=== PATIENT | female | born 2005 | race Caucasian/White ===

== ENCOUNTER 2024-06-02 11:57 | Emergency (ER) | payer OTHER, SELFPAY ==
[2024-06-02 12:08] VITALS: BP 113/79; PULSE 68; RESP 16; TEMP 37; O2SAT 100
--- NOTE | 2024-06-02 13:41 | ED.RECABL ---
HPI - Recheck/Abnormal Lab/Rx General Chief Complaint: Recheck/Abnormal Lab/Rx Stated Complaint: 13 weeks preg, htn Time Seen by Provider: 06/02/24 12:53 History of Present Illness HPI narrative: 18-year-old female at approximately 13 weeks gestation presenting with lightheadedness. States that she was at work when she started to feel lightheaded so she checked her pulse and it was in the 130s. She went to the nurse who tested her blood pressure which was elevated. Also complains of a headache. Her family is at bedside and states that she has been dealing with a lot of anxiety and stress lately. States that she is prone to UTIs and she was just treated for 1. She denies dysuria. Related Data Allergies Allergy/AdvReac Type Severity Reaction Status Date / Time codeine Allergy Unknown RASH Verified 06/02/24 12:23 Review of Systems Review of Systems: All systems reviewed & are unremarkable except as noted in HPI and below Exam Narrative: GENERAL: Well-appearing, Is in no acute distress, pleasant cooperative HEAD: Normocephalic, atraumatic. EYES: PERRLA and EOMI. ENT: Mucous membranes moist. NECK: Supple. CHEST: Clear to auscultation. No respiratory distress. HEART: Regular rate and rhythm ABDOMEN: Soft, nontender, appropriately gravid EXTREMITIES: Normal range of motion SKIN: Warm, dry, no rash. NEURO: Alert and oriented x3. PSYCH: Normal mood and affect. Course Vital Signs Vital signs: Vital Signs Temperature 98.6 F 06/02/24 12:08 Pulse Rate 68 06/02/24 12:08 Respiratory Rate 16 06/02/24 12:08 Blood Pressure 113/79 06/02/24 12:08 Pulse Oximetry 100 06/02/24 12:08 Oxygen Delivery Room Air 06/02/24 12:08 Temperature 98.5 F 06/02/24 15:41 Pulse Rate 62 06/02/24 15:41 Respiratory Rate 16 06/02/24 15:41 Blood Pressure 96/59 L 06/02/24 15:41 Pulse Oximetry 100 06/02/24 15:41 Oxygen Delivery Room Air 06/02/24 12:08 MDM - Recheck/Abnormal Lab/Rx MDM Narrative Medical decision making narrative: 18-year-old female presenting with lightheadedness. Vitals within normal limits. Exam remarkable for the above. Blood work is unremarkable. UA is contaminated but does appear like it may still be infected. Will start her back on Keflex. Patient has already spoken with her OB who is going to follow up with her on Wednesday. Discussed appropriate supportive care and return precautions. Discharged in stable condition. Differential Diagnosis Differential diagnosis: Likely other ( Lightheadedness, , UTI, dehydration) Medical Records Attestation: I reviewed the patient's medical records. Lab Data Attestation: I reviewed the patient's lab results. 06/02/24 14:10 06/02/24 14:10 Labs: Lab Results 06/02/24 06/02/24 06/02/24 Range/Units 14:10 14:11 14:32 WBC 8.5 (4.5-10.0) K/mm3 RBC 3.49 L (4.2-5.4) M/mm3 Hgb 11.6 L (12.0-15.0) g/dL Hct 32.4 L (37.0-47.0) % MCV 92.8 (80-100) fl MCH 33.2 (26-34) pg MCHC 35.8 (32-36) g/dl RDW 12.3 (11.5-14.5) % Plt Count 290 (150-375) k/mm3 MPV 9.6 (7.4-10.4) fl Immature Gran % (Auto) 0.5 (0-0.5) % Neut % (Auto) 71.5 (45.5-73.1) % Lymph % (Auto) 19.2 (18.3-44.2) % [place] % (Auto) 7.1 (2.6-8.5) % Eos % (Auto) 1.2 (0-4.4) % Baso % (Auto) 0.5 (0.2-1.2) % Lymph # (Auto) 1.64 (0.9-3.2) K/mm3 [place] # (Auto) 0.6 (0.1-0.6) K/mm3 Eos # (Auto) 0.1 (0-0.3) K/mm3 Baso # (Auto) 0.0 (0.0-0.1) K/mm3 Abs Immat Gran (auto) 0.04 H (0.00-0.031) K/mm3 Absolute Neuts (auto) 6.1 (1.3-6.7) K/mm3 Absolute Nucleated RBC 0.000 (0.0-0.012) K/mm3 Nucleated RBC % 0.0 (0.0-0.2) % Sodium 134 (134-143) mmol/L Potassium 3.9 (3.4-5.0) mmol/L Chloride 107 (98-107) mmol/L Carbon Dioxide 25 (22-30) mmol/L Anion Gap 2 L (4-12) mmol/L BUN 6 L (8-21) mg/dL Creatinine 0.40 L (0.7-1.0) mg/dL Estim Creat Clear Calc 175 ml/min Estimated GFR > 60 (59 - ) Glucose 73 (65-110) mg/dL Calcium 8.8 L (8.9-10.7) mg/dL Urine Color Yellow (Yellow) Urine Appearance Cloudy H (Clear) Urine pH 6.5 (5.0-9.0) Ur Specific Bernard 1.016 (1.001-1.035) Urine Protein Trace (Negative) mg/dL Urine Glucose (UA) Negative (Negative) mg/dL Urine Ketones Negative (Negative) mg/dL Ur Blood (Man) Negative (Negative) Urine Nitrate Negative (Negative) Urine Bilirubin Negative (Negative) Urine Urobilinogen 1.0 (<2.0) mg/dL Leukocyte Esterase Rfl 1+ H (Negative) [place]/UL Urine RBC 0-2 (0-2) /hpf Urine WBC 21-50 H (0-3) /hpf Ur Squamous Epith Cells Few (Few) /hpf Urine Bacteria 4+ /hpf Urine Casts 0-2 POC Urine HCG, Qual Positive (Negative) Critical Care Time Critical Care Time Critical Care Time: No Discharge Plan Discharge Clinical Impression: Urinary tract infection affecting , Light-headedness Patient Disposition: Home, Self-Care Condition: Stable Instructions: Antibiotic Form, Urinary Tract Infection in (ED) Additional Instructions: Your workup today shows urinary tract infection. Please complete the antibiotics as prescribed. Drink plenty of hydrating fluids such as water, Gatorade, Powerade. Follow-up closely with your OB as discussed. If your symptoms worsen or other concerning symptoms arise, please return to the ER. Prescriptions: New cephalexin 500 mg capsule 500 mg PO Q12H 7 Days Qty: 14 0RF Follow-up/Referrals: Luis Alfredo Green MD [Primary Care Provider] -
[2024-06-02 14:14] VITALS: BP 100/54; PULSE 77; RESP 16; TEMP 36.8; O2SAT 100
[2024-06-02 14:18] LABS: Basophils Percent Auto 0.5 % (0.2-1.2); Eosinophils Absolute Auto 0.1 K/mm3 (0-0.3); Eosinophils Percent Auto 1.2 % (0-4.4); Hematocrit 32.4 % (37.0-47.0); Hemoglobin 11.6 g/dL (12.0-15.0); Immature Granulocyte Absolute 0.04 K/mm3 (0.00-0.031); Immature Granulocyte Percent A 0.5 % (0-0.5); Lymphocytes Absolute Auto 1.64 K/mm3 (0.9-3.2); Lymphocytes Percent Auto 19.2 % (18.3-44.2); Mean Corpuscular HGB Conc 35.8 g/dl (32-36); Mean Corpuscular Hemoglobin 33.2 pg (26-34); Mean Corpuscular Volume 92.8 fl (80-100); Mean Platelet Volume 9.6 fl (7.4-10.4); Monocytes Absolute Auto 0.6 K/mm3 (0.1-0.6); Monocytes Percent Auto 7.1 % (2.6-8.5); Neutrophils Absolute Auto 6.1 K/mm3 (1.3-6.7); Neutrophils Percent Auto 71.5 % (45.5-73.1); Platelet Count Result 290 k/mm3 (150-375); Red Blood Count 3.49 M/mm3 (4.2-5.4); Red Cell Distribution Width 12.3 % (11.5-14.5); White Blood Count 8.5 K/mm3 (4.5-10.0)
[2024-06-02 14:22] LABS: Add Urine Microscopic? YES; Appearance Urine Cloudy (Clear); Bacteria Urine 4+ /hpf; Bilirubin Urine Negative (Negative); Blood Urine Negative (Negative); Color Urine Yellow (Yellow); Glucose Urine UA Negative (Negative); Ketones Urine Negative (Negative); Leukocyte Esterase Ur 1+ LEU/UL (Negative); Nitrate Urine Negative (Negative); Non Pathogenic Casts 0-2; Protein Urine Trace mg/dL (Negative); RBC Urine 0-2 /hpf (0-2); Specific Grav Ur 1.016 (1.001-1.035); Squamous Epithelial Cell Urine Few /hpf (Few); WBC Urine 21-50 /hpf (0-3); pH Urine 6.5 (5.0-9.0)
[2024-06-02] MEDS: SODIUM CHLORIDE 0.9% IV 1,000 ML 999 ML IV CONT (14:22)
[2024-06-02] MEDS: ACETAMINOPHEN 500 MG TABLET 1000 MG PO (14:23)
[2024-06-02 14:26] VITALS: O2SAT 100
[2024-06-02 14:32] LABS: Anion Gap 2 mmol/L (4-12); Blood Urea Nitrogen 6 mg/dL (8-21); Calcium 8.8 mg/dL (8.9-10.7); Carbon Dioxide 25 mmol/L (22-30); Chloride 107 mmol/L (98-107); Estimated CRCL calculation 175 ml/min; Estimated Glomerular Filt Rate > 60; Glucose 73 mg/dL (65-110); Potassium 3.9 mmol/L (3.4-5.0); Sodium 134 mmol/L (134-143)
[2024-06-02 14:34] LABS: BEDSIDEPREGUCG Positive (Negative)
[2024-06-02 15:41] VITALS: BP 96/59; PULSE 62; RESP 16; TEMP 36.9; O2SAT 100
== END 2024-06-02 16:33 | disposition home or self-care (01) ==
PROVIDERS: Emergency Provider Emergency Medicine; PCP Obstetrics & Gynecology
DX: O23.41 Unspecified infection of urinary tract in pregnancy, first trimester (principal); N39.0 Urinary tract infection, site not specified; Z3A.13 13 weeks gestation of pregnancy; R42 Dizziness and giddiness
CPT/HCPCS: 36415; 80048; 81001; 81025; 85025; 87077; 87086; 87186; 96360; 96361; 99283; A9270; J7030

== ENCOUNTER 2024-09-06 15:50 | Outpatient (CLI) | payer OTHER, SELFPAY ==
[2024-09-06 17:39] LABS: Hematocrit 34.2 % (37.0-47.0); Hemoglobin 12.1 g/dL (12.0-15.0)
--- OUTSIDE RECORDS SUMMARY | 2024-09-06 17:42 | XMS_ITS | Clinical Summary ---
Author Organization [facility] Address [address] [place] [address] Care Team Providers Care District Adviser Name Role Phone Melanie Lemons MD Primary Care Provider + Renae Campos MD Unavailable [phone] Allergies Active Allergy Reactions Criticality Noted Date Comments Codeine Rash Medium 08/30/2016 Medications albuterol HFA (PROVENTIL HFA,VENTOLIN HFA,PROAIR HFA) 90 mcg/actuation inhaler Inhale 2 puffs every 6 (six) hours as needed for wheezing 1 each 1 3 Active ondansetron ODT (ZOFRAN-ODT) 4 mg disintegrating tablet Take 1 tablet (4 mg total) by mouth every 8 (eight) hours as needed for nausea or vomiting 20 tablet 3 Active Active Problems Problem Noted Date Diagnosed Date Pyelonephritis 09/12/2023 Nicotine use disorder 09/12/2023 Nausea & vomiting 09/12/2023 Sinus tachycardia 09/12/2023 Nondisplaced fracture of mid dle phalanx of right little finger, initial encounter for closed fracture 04/26/2019 Major depressive disorder 04/17/2019 Overview (06/06/2022): 01/11/2019 - D/c from [facility] after 30 day admission for residential treatment with history of alcohol and marijuana use and struggling with anxiety, depression, and PTSD. Pt successfully completed program and no longer requires this level of care. Follow up outpatient therapy and psych for continued treatment. Medications at discharge include: Melatonin 3mg at bedtime, Excedrin Migraine [id number] BID prn for migraines, Minipress 2mg capsules at bedtime for PTSD, Hydroxine 25mg BID prn anxiety, Lexapro 15mg (1& 1/2 10mg tabs) daily for depression. 11/12/2017 - PHQ-9 in office score 12. Depression managed by Viv Costa Last Assessment & Plan: Pt states her symptoms are much improved on Lexapro 15mg. Will continue this dosage for the next month and see how pt does. Will refill next week as pt will be out of medication then. Recommended pt see therapist, referred to today at [facility] as pt is unsure if Mom has found other therapists. No thoughts of hurting herself or anyone else today. Will continue to monitor. Should follow up with pt in ~1mo. Acute infective otitis externa of left ear 02/24 Upper respiratory tract infection 02/24/2019 Encounters Date Type Department Care Team Description 08/15/2024 Telephone [facility] [address] [facility] [address] [place] [address] Olga Medellin MA from Last 3 Months Surgical History Surgery Date Site/Laterality Comments TONSILECTOMY, ADENOIDECTOMY, BILATERAL MYRINGOTOMY AND TUBES ADENOIDECTOMY Bilateral Per Mom Medical History Medical History Date Comments Asthma Family History Medical History Relation Name Comments Diabetes Father Hyperlipidemia Father Hypertension Father Asthma Maternal Grandmother Depression Mother Low Back Pain Mother Asthma Mother's Sister Heart disease Paternal Grandfather Hyperlipidemia Paternal Grandfather Relation Name Status Comments Father Alive Maternal Grandmother Mother Alive Mother's Sister Paternal Grandfather Social History Tobacco Use Types Packs/Day Years Used Date Smoking Tobacco: Some Days Smokeless Tobacco: Never Tobacco Cessation:Ready to Q uit: Not Asked; Counseling Given: Not Answered Comments:vapes Alcohol Use Standard Drinks/Week Comments Never 0 (1 standard drink = 0.6 oz pur e alcohol) [facility] Utilities Answer Date Recorded In the past 12 months has [employer], oil, or water [employer] threatened to shut off services in your home? No 09/13/2023 Social Connection and Isolat ion Panel [NHANES] Answer Date Recorded In a typical week, how many times do you talk on the phone with family, friends, or neighbors? More than three times a week 09/13/2023 How often do you get togethe r with friends or relatives? More than three times a week 09/13/2023 How often do you attend chur ch or taoism services? Never 09/13/2023 Do you belong to any clubs o r organizations such as religion groups, unions, fraternal or athletic groups, or school groups? No 09/13/2023 How often do you attend meet ings of the clubs or organizations you belong to? Never 09/13/2023 Are you , , di vorced, , never , or living with a partner? Never 09/13/2023 Overall Financial Resource Strain (CARDIA) Answe r Date Recorded How hard is it for you to pa y for the very basics like food, housing, medical care, and heating? Not hard at all 09/13/2023 Hunger Vital Sign Answer Date Recorded Within the past 12 months, y ou worried that your food would run out before you got the money to buy more. Never true 09/13/19 24 Within the past 12 months, t he food you bought just didn't last and you didn't have money to get more. Never true 09/13/2023 PRAPARE - Transportation Answer Date Re corded In the past 12 months, has l ack of transportation kept you from medical appointments or from getting medications? No 08/26 In the past 12 months, has l ack of transportation kept you from meetings, work, or from getting things needed for daily living? No 09/13/2023 Housing Stability Vital Sign Answer Jose Alfredo e Recorded In the last 12 months, was t here a time when you were not able to pay the mortgage or rent on time? No 09/13/2023 In the last 12 months, how many places have you lived? 1 09/13/2023 In the last 12 months, was t here a time when you did not have a steady place to sleep or slept in a snf (including now)? No 09/13/2023 Personal Safety Answer Date Recorded Have you ever been in or are you currently in a harmful physical or emotional relationship or is someone making you feel afraid or unsafe? Denies 09/11/2023 Comments No Sex and Gender Information Value Date Recorded Sex Assigned at Not on file Legal Sex Female 7:17 PM [employer] Gender Identity Not on file Sexual Orientation Not on file Obstetrics History Para Term AB IAB SAB Ectopic Multiple Livin g Live Births 1 1 1 Date Outcome GA Total Labor Labor/2nd/3rd Weight Sex Type Anes PTL Odalis A1 A5 Name Clin 023 SAB 7w2d SAB Last Filed Vital Signs Vital Sign Reading Time Taken Comments Blood Pressure 96/60 09/16/2023 7:47 AM CDT Pulse 55 09/16/2023 7:47 AM CDT Temperature 36.5 C (97.7 F) 09/16/2023 7:47 AM CDT Respiratory Rate 18 09/16/2023 7:47 AM CDT Oxygen Saturation 98% 09/16/2023 7:47 AM CDT Inhaled Oxygen Concentration - - Weight 67.4 kg (148 lb 11.2 oz) 09/12/2023 5:40 AM CDT Height 161 cm (5' 3.39 ) 09/12/2023 5:40 AM CDT Body Mass Index 26.02 09/12/2023 5:40 AM CDT Plan of Treatment Health Maintenance Due Date Last Done Comments Depression Screening 2004 Hepatitis C Screening 2004 Pneumococcal vaccine <65 (1 of 1 - PPSV23) 2010 09/18/2005, 04/07/2005, 02/03/2005, Additional history exists HPV Vaccines (1 - 3-dose series) 2019 Meningococcal B Vaccine (1 of 2 - Standard) 2020 Covid-19 Vaccine (3 - season) 2024 12/03/2020, 11/11/2020 Influenza Vaccine (#1) 2024 , 04/14/2019, 03/25/2010 Chlamydia and Gonorrhea (GC/CT) Screening 03/26/2024 03/26/2023 Regular Well Visit/Exam 18-64 03/26/2024 03/26/2023 DTaP/Tdap/Td Vaccine (7 - Td or Tdap) 03/02/2027 03/02/2017, 03/25/2010, 09/18/2005, Additional history exists Hepatitis B Screening Completed 09/18/2005 , 04/07/2005, 04/07/2005, Additional history exists Varicella Vaccines Completed 03/25/2010, 06/23/2005 Meningococcal Vaccine Aged Out 03/02/2017 No maria elena trixie eligible based on patient's age to complete this topic Procedures Procedure Name Priority Date/Time Associated Diagnosis Comments N. GONORRHOEAE/C. TRACHOMATIS AMPLIFICATION Routine 03/26/2023 11:43 AM CDT Screening examination for STD (sexually transmitted disease) from Last 3 Months or Most Recently Relevant to Health Maintenance Results * N. gonorrhoeae/C. trachomatis Amplification Urine (03/26/2023 11:43 AM CDT) C. trachomatis RNA Negative Negative [facility] - 01 N. gonorrhoeae RNA Negative Negative [facility] - 01 Urine (None) 03/26/2023 11:4 3 AM CDT 03/26/2023 Comment:none Narrative [facility] - 03/29/2023 9:07 PM CDT Performed at: 01 - [address] [id number] Furniture Sprayer: Lesly Valencia MD, Phone: [phone] Tj Castaneda MD LAB MICROBIOLOGY - GENERAL ORDERABLES Final Result [facility] - 01 from Last 3 Months or Most Recently Relevant to Health Maintenance Insurance [employer] [facility] CHOICE PLUS [employer] [facility] CHOICE PLUS Advance Directives For more information, please contact: [phone] * Full Code (Latest Code Status on File) Date Activated Date Inactivated Comments 09/12/2023 6:01 AM 09/16/2023 3:15 PM Care Teams District Adviser Relationship Specialty Start Date End Date Melanie Lemons MD PCP - General 08/12/20 Renae Campos MD [address] [facility] [address] [place] [address] Referring Physician Internal Medicine 09/16/23
--- OUTSIDE RECORDS SUMMARY | 2024-09-06 17:42 | XMS_ITS | Clinical Summary ---
Author Organization [facility] Address [address] [place] [address] Phone Care Team Providers Care Cage Shift Manager Name Role Phone Provider, None Primary Care Provider Unavailabl e Allergies No known active allergies Medications Blisovi FE 07/17 1-20 MG-MCG Tablet 0 Active Etonogestrel (NEXPLANON SC) by Subcutaneous route. Active escitalopram (LEXAPRO) 10 MG Tablet Take 1.5 tablets by mouth daily. 45 Tab 0 Active Additional Information Patient not taking.Reported on 08/20/2020 tretinoin (RETIN-A) 0.025 % Gel Prior to application, wash hands; gently wash face with a mild soap; pat dry and wait 20 to 30 minutes. Topically apply thin layer to affected area in the evening or before bedtime, avoiding eyes, ears, nostrils, and mouth. 1 Tube 2 1 Active Additional Information Patient not taking.Reported on 12/02/2020 Benzoyl Peroxide (BPO-5 Wash) 5 % Liquid Wet skin areas to be treated prior to administration. Gently massage into skin for 10 to 20 seconds, working into a full lather. Rinse thoroughly and pat dry. 1 Bottle 2 1 Active Additional Information Patient not taking.Reported on 12/02/2020 Active Problems Problem Noted Date Diagnosed Date Patellofemoral pain syndrome of left knee 2020 Assessment & Plan (12/12/2020 8:51 AM CDT): Recommended rest, ice, elevation, and compression with Ibuprofen use TID for next few days until swelling dissipates. X-rays not ordered as there is no swelling, trauma, or point tenderness noted. Pain is located in the anterior knee region and above the knee towards the quadriceps. If no improvement within the next 2-3 weeks, will refer to PT and/or Orthopedics. Infectious mononucleosis without complication Assessment & Plan (09/11/2020 10:22 AM CDT): Pt doing well without any RUQ and LUQ pain. No hepatosplenomegaly noted. Pt able to return to sports as she is 1mo past her diagnosis. Assessment & Plan (08/20/2020 1:18 PM IMPLEMENTATION CONSULTANT): LFTs reordered today to trend numbers as they were elevated in ER. Pt with mild RUQ tenderness on palpation. Explained importance of no strenuous physical activity until 3-4 week demond and after being cleared by physician. If abdominal pain worsens, Mom to let us know. Mom explained red flags of any emergent abdominal problems including hard, distended abdomen, blood or mucous in stool, difficulty feeding, pt appearing in pain or irritable. Weight gain, abnormal 04/30/2020 Assessment & Plan (04/30/2020 1:42 PM IMPLEMENTATION CONSULTANT): Patient with significant weight gain since last visit. Reviewed growth chart with mom and patient. Mom and patient feel that this is due to COVID as well as patients depression returning. Patient does admit that she eats too much. Discussed healthy diet and getting at least 30 minutes of exercise per day to start. Hopeful that with treating patient's depression again, that patients weight will also begin to decrease. Recommended 5-2-1-0 (5 fruits and vegetables per day, less than 2 hours of screen time per day, at least 1 hour of activity per day, and 0 sweetened beverages). Sexually active child 02/22/2020 Assessment & Plan (02/22/2020 3:47 PM CDT): Patient reports her LMP was last Wednesday. Patient has appointment with OB coming up to talk about a different form of contraception as she does not like the Nexplanon and feels that it is making her gain weight despite trying to lose weight. STI testing ordered today as patient not currently sexually active but has been within the last year. Patient given permission to speak with mom with results and mom aware of testing. Contraception management 07/17/2019 Overview (07/17/2019): 11/26/2017 - Insertion of Nexplanon in left arm by GERDA Garces at [facility] Nondisplaced fracture of mid dle phalanx of right little finger, initial encounter for closed fracture 04/26/2019 Encounter for routine child health examination without abnormal findings 04/17/2019 Assessment & Plan (02/23/2020 7:57 AM CDT): Anticipatory guidance done including seat belt safety, avoidance of drugs and alcohol, bullying, monitoring Internet/social media use, knowing child's friends, encouraging independence and self responsibility, showing affection and praise appropriately. Sun safety and bug avoidance discussed. Mental health counseling discussed. Discussed healthy diet and exercise including 5-2-1-0 (5 fruits and vegetables per day, less than 2 hours of screen time per day, at least 1 hour of activity per day, and 0 sweetened beverages. Vaccines not updated today as mom states that patient is up to date but received immunizations elsewhere. Will request records from prior clinic. Hearing screen normal today. Vision screen normal per sports physical. Growth and development appropriate. Patient with dental home. School physical also completed today and form given to patient. Acne 04/17/2019 Overview (07/17/2019): 05/12/2018 - Minocycline 50mg daily 11/12/2017 - Tretinoin 0.05% prescribed and derm referral placed Assessment & Plan (12/11/2020 5:46 PM CDT): Recommended that pt restart and remain compliant on her Doxycycline, Tretinoin, and BPO wash. Pt stated that this regimen was working for her, but she became noncompliant. She just restarted the regimen this week. Told pt that I had given her refills so they should still be available at the pharmacy. If pt cannot obtain meds, she is to let us know. Cass skin care recommended. Derm referral also placed today. Told pt that compliance is rico when it comes to acne treatment. Assessment & Plan (09/11/2020 10:13 AM CDT): Started pt on Tretinoin nightly, BPO wash daily in shower, and doxycycline as pt has facial and body acne. Explained that while taking this medication, pt cannot lay flat for at least 30mins to an hour and must take pills with full 8oz glass of water due to risk of esophageal aguiar. Also explained risk of immunologic and allergic reactions that are rare but can occur with use of this antibiotic. Asked pt to read the information given with AVS before starting medication. Assessment & Plan (04/17/2019 3:32 PM CDT): Pediatric Dermatology referral placed for patient's acne per mom's request. Mom states that her last grooving lathe tender exhausted all options and told her next step was dermatology, however they moved prior to being able to get this done. Patient is not currently on any medication for acne. Major depressive disorder 04/17/2019 Overview (07/17/2019): 01/11/2019 - D/c from [facility] after 30 day admission for residential treatment with history of alcohol and marijuana use and struggling with anxiety, depression, and PTSD. Pt successfully completed program and no longer requires this level of care. Follow up outpatient therapy and psych for continued treatment. Medications at discharge include: Melatonin 3mg at bedtime, Excedrin Migraine [phone] BID prn for migraines, Minipress 2mg capsules at bedtime for PTSD, Hydroxine 25mg BID prn anxiety, Lexapro 15mg (1& 1/2 10mg tabs) daily for depression. 11/12/2017 - PHQ-9 in office score 12. Depression managed by Viv Cox. Assessment & Plan (05/22/2020 12:55 PM IMPLEMENTATION CONSULTANT): Pt states her symptoms are much improved [...] Should follow up with pt in ~1mo. Assessment & Plan (04/30/2020 1:39 PM IMPLEMENTATION CONSULTANT): Restarted Lexapro 15mg. Told patient that I would like her to follow up in office in 3 weeks for recheck. Discussed need to call office if any side effects present or if any worsening of symptoms. Discussed importance of getting patient started in counseling as soon as possible as this will also help keep depression/anxiety symptoms controlled. Mom and patient verbalized understanding. Assessment & Plan (02/22/2020 3:45 PM CDT): Patient not currently on medication and reports doing well. Patient recently got a job at [employer] and is excited about her first [employer]. Patient reports that her mom and her have become very close and she is happy about that. Congratulated patient on all her accomplishments. Patient to follow up if mood starts to deteriorate again. Assessment & Plan (05/18/2019 10:43 AM IMPLEMENTATION CONSULTANT): Per review of [facility] records, patient was on Lexapro 15mg and is currently on Lexapro 10mg. Mom and patient feel that patient was doing better on the 15mg when she was in the facility and are unsure how she got changed to the 10mg. Refill sent for Lexapro 10mg (1 & 1/2 tablets daily). Patient has not started in counseling. Will have Stefania (behavioral health navigator) reach out to mom to get this set up for her. Mom states she will be available today to talk with Stefania. Assessment & Plan (04/24/2019 10:05 AM CDT): Referral for Behavioral Health Navigator placed Assessment & Plan (04/17/2019 3:35 PM CDT): Due to patient's significant mental health history with trauma, told mom I would like patient to be seen at a facility where she could see Psych and receive Therapy services such as [facility] or [facility]. Mom would like to take patient to [facility] as it is closer to their home. Mom given the phone number for [facility] and encouraged her to get patient in as soon as possible. Told mom that if she is unable to get patient in with [facility], to call the office and we will put in a Behavioral Health Navigator referral to get patient started. Will request records from [facility] so that we can refill the medication that she is currently on in addition to Lexapro. Per mom, they still have some of the medication in a blister pack card left from the facility. Refill sent for Lexapro 10mg to patient's pharmacy. Follow up in 4 weeks or sooner if symptoms worsen. Will call mom when we have records from [facility] and can fill the other medication. Mom verbalized understanding and comfortable with plan. Estimated Date of Delivery Comme nts Yes 12/05/2024 Resolved Problems Problem Noted Date Diagnosed Date Resolved Date Viral pharyngitis 12/02/2020 12/11/2020 Assessment & Plan (12/02/2020 4:02 PM CDT): Rapid strep negative. Throat culture pending. No known COVID exposures. Rapid COVID negative. Supportive care recommended with Acetaminophen and Ibuprofen as needed for pain and fevers. Pt to let us know if she does not improve by end of week. Should start feeling better by then as most viral illnesses last ~3-7 days. Viral syndrome 03/18/2020 09/10/2020 Assessment & Plan (03/18/2020 10:52 PM CDT): Supportive care recommended with Acetaminophen and Ibuprofen as needed for pain and fevers. Pt was COVID negative, rapid strep negative, throat culture negative, Sunflower negative. Explained to Mom DDX of viral exanthem, Sunflower like illness, scarlet fever. Explained that I do think this is likely viral in origin. Pt is complaining of itchiness, which is not characteristic of viruses, but when asked to explain what she feels, she states it is slightly itchy. Prescribed prednisone as family states they never received the dosing from the ER. Also explained possibility of needing to do labs for more mono specific illnesses like CMV IgM and EBV IgM to see if these are positive Scarlet fever is unlikely as pt was negative for strep on throat culture and rash does not have traditional sandpaper feel to it. Will call pt on Wednesday to see how she is doing. Asthma 07/17/2019 07/17/2019 Overview (07/17/2019): 11/12/2017 - ProAir inhaler prescribed for shortness of breath with exertion. No further testing at this time. Left arm cellulitis 07/17/2019 02/22/20 Overview (07/17/2019): 01/04/2018 - Tx with Keflex 500mg BID for cellulitis related to Nexplanon implant. Bacterial pneumonia 05/18/2019 02/22/20 Assessment & Plan (05/18/2019 10:52 AM IMPLEMENTATION CONSULTANT): Patient appears ill in office, laying on exam table but interactive when for exam. Amoxicillin sent to pharmacy in addition to Azithromycin that was prescribed by ED. Discussed use of the medications. Supportive care recommended including Tylenol or Motrin for fever and increase fluid intake. Told mom I will call in the morning to check on patient. Mom verbalized understanding. Fracture of middle phalanx o f finger of right hand 04/24/2019 05/18/2019 Assessment & Plan (04/26/2019 1:39 PM CDT): There is deformity of the right 5th digit. No discoloration or edema noted. Ortho referral placed. Told mom and patient that they should continue supportive care and we will call with appointment details. Mom prefers [facility] for Ortho. Acute infective otitis externa of left ear 02/24/2019 03/18/2020 Acute recurrent adenotonsillitis 09/01/2016 03/18/2020 Immunizations Immunization Administration Dates Next Due Covid-19, Mrna, Lnp-s, Pf, 3 0 Mcg/0.3 Ml Dose ([employer] 12/03/2020,11/11/2020 DTAP-IPV 03/25/2010 DTAP/HEPB/IPV Vaccine 09/18/2005, 005,02/03/2005,08/20 Hepatitis A, Pediatric, Unsp ecified Formulation 12/23/2005,07/02/2005 Hepatitis B Vaccine, Pediatric/adolescent 2004 Hib Vaccine,unspecified Formulation 08/27,04/07/2005,02/03/2005,08/20 Influenza Vaccine, Quadrivalent, PF 03/18/2020,1 MMR Vaccine 03/25/2010,06/19/2005 Meningococcal Vaccine 03/02/2017 Pneumococcal Vaccine Peds - 7 Valent ,04/07/2005,02/03/2005,08/20 TDAP Vaccine 03/02/2017 Varicella Vaccine Live 03/25/2010,06/19/2005 Family History Medical History Relation Name Comments Bipolar Disorder Brother 1 Mental Disorder, Other Brother 1 homic idal Suicide Attempts Brother 1 tried to [place] himself Bipolar Disorder Brother 2 Bipolar Disorder Brother 3 Bipolar Disorder Brother 4 Diabetes Father Hypertension Father Cancer Maternal Grandfather Asthma Maternal Grandmother Heart Disease Maternal Grandmother Bipolar Disorder Mother Diabetes Paternal Grandfather Heart Disease Paternal Grandfather Heart Surgery Paternal Grandfather Pacemaker Paternal Grandfather Breast Cancer Paternal Grandmother Anxiety disorder Sister Defects Sister Born with 3 ch ambers in her heart Mental Disorder, Other Sister PTSD Relation Name Status Comments Brother 1 Alive Brother 2 Alive Brother 3 Alive Brother 4 Alive Father Alive Maternal Grandfather Maternal Grandmother Mother Alive Paternal Grandfather Paternal Grandmother Alive Sister Alive Social History Tobacco Use Types Packs/Day Years Used Date Smoking Tobacco: Former Cigarettes Smokeless Tobacco: Never Tobacco Cessation:Counseling Given: Yes Alcohol Use Standard Drinks/Week Comments Never 0 (1 standard drink = 0.6 oz pur e alcohol) AUDIT-C Answer Date Recorded Frequency of Alcohol Consumption Never 04/12/2019 Average Number of Drinks Not on file 019 Frequency of Binge Drinking Not on file 03/28 Sexually Active Control Partners Comments Yes Implant, Condom Male Estimated Date of Delivery Comme nts Yes 12/05/2024 Sex and Gender Information Value Date Recorded Sex Assigned at Female 05/15/2024 8:39 PM IMPLEMENTATION CONSULTANT Legal Sex Female 8:18 PM CDT Gender Identity Female 05/15/2024 8:39 PM IMPLEMENTATION CONSULTANT Sexual Orientation Not on file Occupation Industry Job Start Date Job End Date Student/ Child Not on file Not on file Not on file Last Filed Vital Signs Vital Sign Reading Time Taken Comments Blood Pressure 117/64 05/15/2024 8:27 PM IMPLEMENTATION CONSULTANT Pulse 88 05/15/2024 8:27 PM IMPLEMENTATION CONSULTANT Temperature 36.7 C (98.1 F) 05/15/2024 8:27 PM IMPLEMENTATION CONSULTANT Respiratory Rate 18 05/15/2024 8:27 PM IMPLEMENTATION CONSULTANT Oxygen Saturation 100% 05/15/2024 8:27 PM IMPLEMENTATION CONSULTANT Inhaled Oxygen Concentration - - Weight 70.3 kg (155 lb) 05/15/2024 8:27 PM IMPLEMENTATION CONSULTANT Height 162.6 cm (5' 4 ) 05/15/2024 8:27 PM IMPLEMENTATION CONSULTANT Body Mass Index 26.61 05/15/2024 8:27 PM IMPLEMENTATION CONSULTANT Plan of Treatment Health Maintenance Due Date Last Done Comments Hepatitis C Virus (HCV) Screening 2004 Human Papillomavirus (HPV) Immunization (1 - 3-dose series) 2019 Meningococcal B Immunization (1 of 2 - Standard) 2020 Influenza Immunization (#1) 2024 03/18/2020, 1 SARS-COV-2 Immunization (3 - season) 2024 12/03/2020, 11/11/2020 DTaP/Tdap/Td Immunization (7 - Td or Tdap) 03/02/2027 03/02/2017, 03/25/2010, 09/18/2005, Additional history exists Hepatitis B Immunization Completed 006, 04/07/2005, 02/03/2005, Additional history exists Pneumococcal Immunization Combined Aged Out 09/18/2005, 04/07/2005, 02/03/2005, Additional history exists No longer eligible based on patient's age to complete this topic Hepatitis A Immunization Discontinued 12/23/2005, 10/2005 Measles Mumps Rubella (MMR) Immunization Discontinued 03/25/2010, 06/19/2005 Polio (IPV) Immunization Discontinued 010, 09/18/2005, 04/07/2005, Additional history exists Varicella Immunization Discontinued 03/25/2010, 2004 Meningococcal Immunization (ACWY) Aged Out 03/02/2017 No longer eligible based on patient's age to complete this topic Respiratory Syncytial Virus (RSV) Immunization (Adult) (No Doses Required) Completed Rotavirus Immunization Aged Out No lo nger eligible based on patient's age to complete this topic Insurance [facility] Care Teams Cage Shift Manager Relationship Specialty Start Date End Date Provider, None [place] PCP - General 05/15/24
--- OUTSIDE RECORDS SUMMARY | 2024-09-06 17:42 | XMS_ITS | Referral Summary ---
Author Organization [facility] Address [address] [place] [address] Care Team Providers Care Outpatient Services Director Name Role Phone Melanie Lemons MD Primary Care Provider + Renae Campos MD Unavailable [phone] Encounters Date Type Department Care Team Description 08/15/2024 Telephone [facility] [address] [facility] [address] [place] [address] Olga Medellin MA from Last 3 Months Allergies Active Allergy Reactions Criticality Noted Date [...] 04/17/2019 Overview (06/06/2022): 01/11/2019 - D/c from [facility] after 30 day admission for residential treatment with history of alcohol and marijuana use and struggling with anxiety, depression, and PTSD. Pt successfully completed program and no longer requires this level of care. Follow up outpatient therapy and psych for continued treatment. Medications at discharge include: Melatonin 3mg at bedtime, Excedrin Migraine [phone] BID prn for migraines, Minipress 2mg capsules [...] ear 02/24 Upper respiratory tract infection 02/24/2019 Social History Tobacco Use Types Packs/Day Years Used Date Smoking Tobacco: Some Days Smokeless Tobacco: Never Tobacco Cessation:Ready to Q uit: Not Asked; Counseling Given: Not Answered Comments:vapes Alcohol Use Standard Drinks/Week Comments Never 0 (1 standard drink = 0.6 oz pur e alcohol) [facility] Utilities Answer Date Recorded In the past 12 months has th [employer] electric, gas, oil, or water company threatened to shut off services in your [...] often do you attend chur ch or episcopalian services? Never 09/13/2023 Do you belong to any clubs o r organizations such as jehovah's witness groups, unions, fraternal or athletic groups, or [...] place to sleep or slept in a jail (including now)? No 09/13/2023 Personal Safety Answer Date Recorded Have you ever been in or are you currently in a harmful physical or emotional relationship or is someone making you feel afraid or unsafe? 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 GONORRHOEAE/C. TRACHOMATIS AMPLIFICATION Routine 03/26/2023 11:43 AM CDT Screening examination for STD (sexually transmitted disease) from Last 3 Months or Most Recently Relevant to Health Maintenance Results * N. gonorrhoeae/C. trachomatis Amplification Urine (03/26/2023 11:43 AM CDT) Pathologist [facility] C. trachomatis RNA Negative Negative [facility] - 01 N. gonorrhoeae RNA Negative Negative [facility] - 01 Urine (None) 03/26/2023 11:4 3 AM CDT 03/26/2023 Comment:none Narrative [facility] - 03/29/2023 9:07 PM CDT Performed at: [facility] [id number] Home Therapy Clinician: Lesly Valencia MD, Phone: [phone] us Tj Castaneda MD LAB MICROBIOLOGY - GENERAL ORDERABLES Final Result [facility] - 01 from Last 3 Months or Most Recently Relevant to Health Maintenance Insurance [facility] CHO[facility] PLUS [facility] [facility] CHOICE PLUS Advance Directives For more information, please contact: [phone] * Full Code (Latest Code Status on File) Date Activated Date Inactivated Comments 09/12/2023 6:01 AM 09/16/2023 3:15 PM Care Teams Outpatient Services Director Relationship Specialty Start Date End Date Melanie Lemons MD PCP - General 08/12/20 Renae Campos MD [address] [place] [address] [place] [address] Referring Physician Internal Medicine 09/16/23
--- OUTSIDE RECORDS SUMMARY | 2024-09-06 17:42 | XMS_ITS | Data Portability ---
Author Organization [facility] Address [address] [place] [address] Assessment No assessment recorded. Plan of Treatment Reminders Order Date Submit Date Provider Last Modified By Organization Details Last Modified Time Details Appointments OB ROUTINE 2024 04:00P Kamlesh WALLACE MD Not available Not available Not available Lab Rh immune globulin screening - Fax results to 2024 025 [facility] (Lab), [address] [place] [address], [phone], 08/22/2024 17:53:16 type + screen, serum - Fax results to 2024 025 [facility] (Lab), [address] [place] [address], [phone], 08/22/2024 17:53:16 HIV (1+2) Ab screen, serum - Fax results to 2024 025 [facility] (Lab), [address] [place] [address], [phone], 08/22/2024 17:53:16 hemoglobi n + hematocri t, blood - Fax results to 2024 025 [facility] (Lab), [address] [place] [address], [phone], 08/22/2024 17:53:16 glucose tolerance test, gestation al, 1-hour - Fax results to 2024 025 [facility] (Lab), [address], [place], [address], 08/22/2024 17:53:16 Referral None recorded. Procedures None recorded. Surgeries None recorded. Imaging US, obstetric , 2nd or 3rd trimester 2024 025 [email or web address] [place], [address], [place], [address], 07/19/2024 21:50:37 Medication Orders metoclopr amide 10 mg tablet [address] [id number], [address], [place], [place], [id number], 06/23/2024 15:00:49 Patient TargetsNo targets recorded. Patient InstructionsNo instructions recorded. Reason for Referral None Reported. Results Created Date Observation Date Name Description Value Unit Range Abnormal Flag Note LastModifiedBy Organization Detail LastModifiedTime 06/03/20 24 06/03/2024 [UNIT Y] ANEUP LOIDY NIPT fraction 8.7% normal Not Available [facility] [place], [address], 06/03/2024 01:40:00 06/03/20 24 06/03/2024 [UNIT Y] ANEUP LOIDY NIPT 22Q11.2 microdeletio n LOW RISK <1 in 10,000 normal Not Available [facility] [address] [facility], [place], [address], 06/03/2024 01:40:00 06/03/20 24 06/03/2024 [UNIT Y] ANEUP LOIDY NIPT sex chromosome aneuploidy NOT DETECT ED normal Not Available [facility] [place], [address], 06/03/2024 01:40:00 06/03/20 24 06/03/2024 [UNIT Y] ANEUP LOIDY NIPT monosomy X LOW RISK <1 in 10,000 normal Not Available [facility] [address], [place], [address], 06/03/2024 01:40:00 06/03/20 24 06/03/2024 [UNIT Y] ANEUP LOIDY NIPT trisomy 13 LOW RISK <1 in 10,000 normal Not Available [facility] [address], [place], [address], 06/03/2024 01:40:00 06/03/20 24 06/03/2024 [UNIT Y] ANEUP LOIDY NIPT trisomy 18 LOW RISK <1 in 10,000 normal Not Available [facility] [address], [place], [address], 06/03/2024 01:40:00 06/03/20 24 06/03/2024 [UNIT Y] ANEUP LOIDY NIPT trisomy 21 LOW RISK <1 in 10,000 normal Not Available [facility] [address] , [place], [address], 06/03/2024 01:40:00 06/03/20 24 06/03/2024 [UNIT Y] ANEUP LOIDY NIPT sex FEMALE normal Not Available [facility] [address] , [place], [address], 06/03/2024 01:40:00 06/03/20 24 06/03/2024 [UNIT Y] ANEUP LOIDY NIPT gestation SINGLE TON normal Not Available [facility] [address] , [place], [address], 06/03/2024 01:40:00 06/03/20 24 06/03/2024 [UNIT Y] ANEUP LOIDY NIPT for detailed report, see pdf See PDF normal Not Available [facility] [address], [place], [address], 06/03/2024 01:40:00 06/11/20 24 06/11/2024 [UNIT Y] ALICIA Aguilera fraction 8.3% normal Not Available [facility] [address], [place], [address], 06/11/2024 10:58:11 06/11/20 24 06/11/2024 [UNIT Y] ALICIA Aguilera cystic fibrosis nipt result LOW RISK 1 in 1100 normal Not Available [facility] [address], [place], [address], 06/11/2024 10:58:11 06/11/20 24 06/11/2024 [UNIT Y] ALICIA Aguilera sickle cell disease/beta -thalassemia /hemoglobino pathies carrier screen NEGATI VE normal Not Available [facility] [address], [place], [address], 06/11/2024 10:58:11 06/11/20 24 06/11/2024 [UNIT Y] ALICIA Aguilera alpha-thalas semia carrier screen NEGATI VE normal Not Available [facility] [address], [place], [address], 06/11/2024 10:58:11 06/11/20 24 06/11/2024 [UNIT Y] ALICIA Aguilera cystic fibrosis carrier screen POSITI VE c.1521 _1523d el (p.Phe 508del ) abnormal Not Available [facility] [address], [place], [address], 06/11/2024 10:58:11 06/11/20 24 06/11/2024 [UNIT Y] ALICIA Aguilera spinal muscular atrophy carrier screen NEGATI VE 2 SMN1 copies , SNP not presen t normal Not Available [facility] [address], [place], [address], 06/11/2024 10:58:11 06/11/20 24 06/11/2024 [UNIT Y] ALICIA ER WILFREDO Aguilera for detailed report, see pdf See PDF normal Not Available [facility] [address], [place], [address], 06/11/2024 10:58:11 05/29/20 24 05/29/2024 HEPAT ITIS C ANTIB JOHNSON SCREE N, REFLE X TO CONFI RMATI ON hepatitis C antibody Non-re active non-re active Antib odies to HCV Not Detec samaria, does not exclu de the possi bilit y of expos ure to HCV. Not Available [facility] (Lab) [address], [place], [address], 05/30/2024 13:26:16 05/29/20 24 05/29/2024 HEPAT ITIS B SURFA CE ANTIG EN hepatitis B surface antigen Non-re active non-re active This assay was perfo rmed using [employer] ratio n reage nts and test kits. Value s obtai marcelo with other assay metho ds or kits canno t be used inter maki eably . Not Available [facility] (Lab) [address], [place], [address], 05/30/2024 13:26:17 05/29/20 24 05/29/2024 HIV 1/2 ANTIG EN/AN TIBOD Y, REFLE X CONFI RMATI ON HIV antigen/anti body Nonrea ctive nonrea ctive HIV-1 antig en and HIV-1 /HIV- 2 antib odies were not detec samaria. No labor atory evide nce of HIV infec tion. Not Available [facility] (Lab) [address], [place], [address], 05/30/2024 13:26:17 05/29/20 24 05/29/2024 CBC W/DIF F WBC 9.1 10'3/ uL 3.5-10 .5 Not Available [facility] (Lab) [address], [place], [address], 05/30/2024 13:26:17 05/29/20 24 05/29/2024 CBC W/DIF F RBC 4.08 10'6/ uL (based on docume nted legal sex) 3.80-5 .20 Not Available [facility] (Lab) [address], [place], [address], 05/30/2024 13:26:17 05/29/20 24 05/29/2024 CBC W/DIF F HGB 13.2 g/dL (based on docume nted legal sex) 11.6-1 5.4 Not Available [facility] (Lab) [address], [place], [address], 05/30/2024 13:26:17 05/29/20 24 05/29/2024 CBC W/DIF F HCT 38.0 % (based on docume nted legal sex) 34.0-4 5.0 Not Available [facility] (Lab) [address], [place], [address], 05/30/2024 13:26:17 05/29/20 24 05/29/2024 CBC W/DIF F MCV 93.1 fL 80.0-9 9.0 Not Available [facility] (Lab) [address], [place], [address], 05/30/2024 13:26:17 05/29/20 24 05/29/2024 CBC W/DIF F MCH 32.4 pg 27.0-3 4.0 Not Available [facility] (Lab) [address], [place], [address], 05/30/2024 13:26:17 05/29/20 24 05/29/2024 CBC W/DIF F MCHC 34.7 g/dL 32.0-3 5.5 Not Available [facility] (Lab) [address], [place], [address], 05/30/2024 13:26:17 05/29/20 24 05/29/2024 CBC W/DIF F RDW 12.3 % 11.0-1 5.0 Not Available [facility] (Lab) [address], [place], [address], 05/30/2024 13:26:17 05/29/20 24 05/29/2024 CBC W/DIF F plt 327 10'3/ uL 150-40 0 Not Available [facility] (Lab) [address], [place], [address], 05/30/2024 13:26:17 05/29/20 24 05/29/2024 CBC W/DIF F MPV 9.9 fL 8.8-12 .1 Not Available [facility] (Lab) [address], [place], [address], 05/30/2024 13:26:17 05/29/20 24 05/29/2024 CBC W/DIF F NRBC's 0.0 % 0.0 Not Available [facility] (Lab) [address], [place], [address], 05/30/2024 13:26:17 05/29/20 24 05/29/2024 CBC W/DIF F absolute NRBCs 0.0 10'3/ uL no refere nce range establ ished Not Available [facility] (Lab) [address], [place], [address], 05/30/2024 13:26:17 05/29/20 24 05/29/2024 CBC W/DIF F neutrophils 77.0 % 34.0-7 3.0 high Not Available [facility] (Lab) [address], [place], [address], 05/30/2024 13:26:17 05/29/20 24 05/29/2024 CBC W/DIF F lymphocytes 15.0 % 15.0-5 0.0 Not Available [facility] (Lab) [address], [place], [address], 05/30/2024 13:26:17 05/29/20 24 05/29/2024 CBC W/DIF F monocytes 6.0 % 1.0-15 .0 Not Available [facility] (Lab) [address] , [place], [address], 05/30/2024 13:26:17 05/29/20 24 05/29/2024 CBC W/DIF F eosinophils 1.2 % 0.0-8. 0 Not Available [facility] (Lab) [address], [place], [address], 05/30/2024 13:26:17 05/29/20 24 05/29/2024 CBC W/DIF F basophils 0.5 % 0.0-2. 0 Not Available [facility] (Lab) [address], [place], [address], 05/30/2024 13:26:17 05/29/20 24 05/29/2024 CBC W/DIF F immature granulocytes 0.3 % no define d refere nce range Not Available [facility] (Lab) [address] [facility], [place], [address], 05/30/2024 13:26:17 05/29/20 24 05/29/2024 CBC W/DIF F absolute neutrophils 7.0 10'3/ uL 1.5-8. 0 Not Available [facility] (Lab) [address], [place], [address], 05/30/2024 13:26:17 05/29/20 24 05/29/2024 CBC W/DIF F absolute lymphocytes 1.4 10'3/ uL 1.0-4. 0 Not Available [facility] (Lab) [address] [facility], [place], [address], 05/30/2024 13:26:17 05/29/20 24 05/29/2024 CBC W/DIF F absolute monocytes 0.6 10'3/ uL 0.2-1. 0 Not Available [facility] (Lab) [address], [place], [address], 05/30/2024 13:26:17 05/29/20 24 05/29/2024 CBC W/DIF F absolute eosinophils 0.1 10'3/ uL 0.0-0. 6 Not Available [facility] (Lab) [address] [facility], [place], [address], 05/30/2024 13:26:17 05/29/20 24 05/29/2024 CBC W/DIF F absolute basophils 0.1 10'3/ uL 0.0-0. 3 Not Available [facility] (Lab) [address] [facility], [place], [address], 05/30/2024 13:26:17 05/29/20 24 05/29/2024 CBC W/DIF F absolute immature granulocytes 0.0 10'3/ uL no define d refere nce range 2023 2:57 AM: P indic ates parti al resul ts on a panel have been relea sed. Addit ional resul ts will follo w. 2023 2:57 AM: This resul t has been final verif ied. No addit ional or maki ed resul ts are expec samaria. Not Available [facility] (Lab) [address] [facility], [place], [address], 05/30/2024 13:26:17 05/29/20 24 05/29/2024 TSH, REFLE X FREE T4 TSH 0.47 uIU/m L 0.30-5 .33 Not Available [facility] (Lab) [address] [facility], [place], [address], 05/30/2024 13:26:18 05/29/20 24 05/29/2024 RUBEL LA IGG ANTIB JOHNSON, QUANT rubella antibodies, IgG Reacti ve reacti ve Not Available [facility] (Lab) [address] [facility], [place], [address], 05/30/2024 13:26:18 05/29/20 24 05/29/2024 RUBEL LA IGG ANTIB JOHNSON, QUANT rubella antibodies, IgG quant 11.3 IU/mL >=10 Non-r eacti ve (Non- Immun e) <10 IU/mL React izabela (Immu ne) > or = 10 IU/mL Not Available [facility] (Lab) [address] [place], [address], 05/30/2024 13:26:18 05/29/20 24 05/29/2024 TYPE/ RH/SC REEN ABO/Rh type O NEG Not Available [facility] (Lab) [address], [place], [address], 05/30/2024 13:26:18 05/29/20 24 05/29/2024 TYPE/ RH/SC REEN antibody screen NEG Not Available [facility] (Lab) [address], [place], [address], 05/30/2024 13:26:18 05/29/20 24 05/29/2024 TYPE/ RH/SC REEN exp date 2023 23:59 Not Available [facility] (Lab) [address] [facility], [place], [address], 05/30/2024 13:26:18 05/29/20 24 05/29/2024 HEMOG LOBIN A1C hemoglobin A1C 4.9 % 0-5.6 The Ameri can [employer] [facility] [employer] iatio n recom mends that a prima ry goal of thera py cortesul d be a HBA1C of < 7% and that physi cians shoul d reeva luate the treat ment regim en in patie nts with HBA1C value s consi stent ly > 8%. <5.7% Miriam l 5.7 - 6.4% Incre ased risk for diabe kaila >=6.5 % Diagn ostic of diabe kaila <7.0% Goal of thera py >8.0% Actio n sugge sted Not Available [facility] (Lab) [address], [place], [address], 05/30/2024 13:26:19 05/29/20 24 05/29/2024 RPR SCREE N, REFLE X TITER /CONF IRMAT ION RPR screen Nonrea ctive nonrea ctive Not Available [facility] (Lab) [address], [place], [address], 05/30/2024 13:26:19 05/24/20 24 05/24/2024 US, obste tric, nucha l trans lucen cy No observ ation record ed. [facility] [address], [place], [address], 05/24/2024 17:25:48 05/24/20 24 05/24/2024 US, obste tric, nucha l trans lucen cy No observ ation record ed. [email or web address] [address], [place], [address], 05/25/2024 01:23:56 07/19/19 25 07/19/2024 US, obste tric, 2nd or 3rd trime ster No observ ation record ed. [facility] [address], [place], [address], 07/19/2024 18:45:30 07/19/19 25 07/19/2024 US, obste tric, 2nd or 3rd trime ster No observ ation record ed. [email or web address], [place], [address], 07/20/2024 00:07:23 Result Notes None recorded. Problems Name Problem SNOMED Code Status Onset Date Resolution Date Notes Provider Name and Address Organization Details Recorded Time 39180464 Active 024 Antoinette duron, [facility] 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 4 17:19:41 Problem Notes None recorded. Procedures Surgical History Date Name Laterality Status Provider Name and Address Organization Details Recorded Time 0 Control Implant Removal completed Misty Pedroza [facility]- [address], [place], [address], [facility] 03/29/2020 16:21:45 tonsilectomy /adenoids completed Venice Meehan [facility] 02/28/2020 13:48:39 Imaging Results Imaging Date Name Status LastModified by Organization Details LastModified Time 05/24/2024 US, obstetric, nuchal translucency completed [facility] [address], [place], [address], 05/24/2024 17:25:48 05/24/2024 US, obstetric, nuchal translucency completed [email or web address], [place], [address], 05/25/2024 01:23:56 07/19/2024 US, obstetric, 2nd or 3rd trimester [facility] [place] [address], [place], [address], 07/19/2024 18:45:30 07/19/2024 US, obstetric, 2nd or 3rd trimester completed [email or web address], [place], [address], 07/20/2024 00:07:23 Procedure Notes None recorded. Medical Equipment None Reported. Allergies No known drug allergies Medications Name Sig Start Date Stop Date Status Note LastModified by Organization Details LastModified Time status covid-19/fl u a-b antigen tst TEST DIRECTED TODAY 05/24 completed Not Available Not Available Not Available promethazin e-DM 6.25 mg-15 mg/5 mL oral syrup 02/27 completed Not Available Not Available Not Available azithromyci n 250 mg tablet 02/27 completed Not Available Not Available Not Available ibuprofen 800 mg tablet TAKE 1 TABLET BY MOUTH EVERY SIX HOURS NEEDED FOR PAIN 12/16 completed Not Available Not Available Not Available metronidazo le 0.75 % (37.5 mg/5 gram) vaginal gel INSERT 1 APPLICATO RFUL VAGINALLY EVERY DAY AT BEDTIME FOR 5 DAYS 01/20 completed Not Available Not Available Not Available metronidazo le 500 mg tablet TAKE 1 TABLET BY MOUTH TWICE DAILY FOR 7 DAYS 03/28 completed Not Available Not Available Not Available sulfamethox azole 800 mg-trimetho prim 160 mg tablet TAKE 1 TABLET BY MOUTH TWICE DAILY FOR 10 DAYS 03/28 completed Not Available Not Available Not Available tramadol 50 mg tablet TAKE 1-2 TABLETS BY MOUTH EVERY SIX HOURS NEEDED FOR PAIN 12/16 completed Not Available Not Available Not Available ondansetron 8 mg disintegrat ing tablet Place 1 tablet every 6-8 hours by transling ual route as needed. 2023 active Not Available Not Available Not Avai lable amoxicillin 875 mg tablet TAKE 1 TABLET BY MOUTH TWICE DAILY 12/16 completed Not Available Not Available Not Available phenazopyri dine 100 mg tablet TAKE 1 TABLET BY MOUTH THREE TIMES DAILY NEEDED FOR URINARY PAIN 03/28 completed Not Available Not Available Not Available cephalexin 500 mg capsule TAKE 1 CAPSULE BY MOUTH TWICE DAILY FOR 7 DAYS 03/28 completed Not Available Not Available Not Available prednisone 50 mg tablet 03/29 completed Not Available Not Available Not Available albuterol sulfate HFA 90 mcg/actuati on aerosol inhaler INHALE 2 PUFFS BY MOUTH EVERY 6 HOURS NEEDED FOR WHEEZING 03/28 completed Not Available Not Available Not Available ondansetron 4 mg disintegrat ing tablet 03/28 completed Not Available Not Available Not Available cefdinir 300 mg capsule 03/28 completed Not Available Not Available Not Available metoclopram yann 10 mg tablet Take 1 tablet 4 times a day by oral route as needed. 2023 active Not Available Not Available Not Avai lable neomycin-po lymyxin-hyd rocort 3.5 mg-10,000 unit/mL-1 % ear drops,susp 02/27 completed Not Available Not Available Not Available escitalopra m 10 mg tablet 02/27 completed Not Available Not Available Not Available 07/17 (28) 1 mg-20 mcg (21)/75 mg (7) tablet Take 1 tablet every day by oral route for 90 days. 12/16 completed Not Available Not Available Not Available nitrofurant oin monohydrate /macrocryst als 100 mg capsule TAKE 1 CAPSULE BY MOUTH EVERY 12 HOURS FOR 7 DAYS 01/20 completed Not Available Not Available Not Available active Not Available Not Avai lable Not Available Nexplanon 68 mg subdermal implant Inject by subcutane ous route. 03/29 completed Not Available Not Available Not Available Vitals Date Recorded Body height Body mass index (BMI) Body mass index (BMI) Percentile per age and sex Body weight Systolic blood pressure Diastolic blood pressure Provider Name and Address Organization Details Last Updated DateTime 4 161.29 cm 28.4 kg/m2 90 % 79790.5 6 g 118 mm[Hg] 69 mm[Hg] [facility] 4 15:13:39 Date Recorded Body height Body mass index (BMI) Body mass index (BMI) Percentile per age and sex Body weight Systolic blood pressure Diastolic blood pressure Provider Name and Address Organization Details Last Updated DateTime 4 161.29 cm 28.6 kg/m2 91 % 80115.1 4868 g 110 mm[Hg] 76 mm[Hg] [facility] 4 14:37:57 Date Recorded Body height Body mass index (BMI) Percentile per age and sex Body mass index (BMI) Body weight Systolic blood pressure Diastolic blood pressure Provider Name and Address Organization Details Last Updated DateTime 5 161.29 cm 93 % 30.2 kg/m2 98969.4 8001 g 113 mm[Hg] 71 mm[Hg] [facility] 5 15:05:22 Date Recorded Body height Body mass index (BMI) Percentile per age and sex Body mass index (BMI) Body weight Systolic blood pressure Diastolic blood pressure Provider Name and Address Organization Details Last Updated DateTime 5 161.29 cm 95 % 32.3 kg/m2 30440.5 8845 g 123 mm[Hg] 78 mm[Hg] Antoinette Mark [facility] 5 17:26:07 Social History Question Answer Notes LastModified by Organizat ion Details LastModified Time Tobacco Smoking Status Never Smoker Quin duron, [facility] 12/16/2022 10:20:12 What Is Your Level Of Alcohol Consumption? None Information not available 12/16/2022 How Many Years Have You Consumed Alcohol? 0 Information not available 12/16/2022 Are You Blind Or Do You Have Difficulty Seeing? No Information n ot available 12/16/2022 What Is Your Level Of Caffeine Consumption? Heavy Information not available 12/16/2022 How Much Tobacco Do You Chew? None Information not available 12/16/2022 In The 14 Days Before Symptom Onset, Have You Had Close Contact With A Laboratory-confirm ed COVID-19 While That Case Was Ill? No Information n ot available 12/16/2022 In The 14 Days Before Symptom Onset, Have You Had Close Contact With A Person Who Is Under Investigation For COVID-19 While That Person Was Ill? No Information not available 12/16/2022 Have You Been To An Area Known To Be High Risk For COVID-19? 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 No Information not available 12/16/2022 What Type Of Diet Are You Following? REGULAR Information n ot available 12/16/2022 What Is The Highest Grade Or Level Of School You Have Completed Or The Highest Degree You Have Received? 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 No Information not available 12/16/2022 Do You Use Protection During Sex? No Information not available 12/16/2022 Do You Use Your Seat Belt Or Car Seat Routinely? Yes Information not available 12/16/2022 Are You Sexually Active? Yes Information not available 08/22/2024 Do You Have Smoke And Carbon Monoxide Detectors In Your Home? Yes Information not available 12/16/2022 How Much Tobacco Do You Smoke? No Information not available 12/16/2022 Do You Feel Stressed (tense, Restless, Nervous, Or Anxious, Or Unable To Sleep At Night)? [id number] Information not available 12/16/2022 Do You Use Any Illicit Or Recreational Drugs? Yes Information not available 12/16/2022 Do You Use Sunscreen Routinely? No Information not available 12/16/2022 How Many Years Have You Smoked Tobacco? 0 Information not available 12/16/2022 Have You Used IV Drugs? No Information not available 12/16/2022 Sex: Unknown Functional Status Question Answer Note LastModified by Organizat ion Details LastModified Time Do you have difficulty walking or climbing stairs? No Information not available 12/16/2022 Are you able to walk? YESWOREST Information not available 12/16/2022 Are you able to care for yourself? Yes Information not available 12/16/2022 Do you have difficulty dressing or bathing? No Information not available 12/16/2022 What is your exercise level? Moderate Information not available 12/16/2022 Mental Status None recorded. Family History Relationship Description Onset Age of this Age Resolved Age Notes LastModified by Organization Details LastModified Time Brother Depressive disorder [email or web address] Not available 11/27 10:19:59 Brother Mental disorder vschroedter Not available 11/27 10:19:59 Father Diabetes mellitus vschroedter Not available 11/27 10:19:59 Mother Anxiety disorder vschroedter Not available 11/27 10:19:59 Mother Depressive disorder vschroedter Not available 11/27 10:19:59 Mother Mental disorder vschroedter Not available 11/27 10:19:59 Maternal Aunt Kidney disease vschroedter Not available 11/27 10:19:59 Maternal Grandmother Asthma vschroedter Not available 10:19:59 Maternal Grandmother Anxiety disorder vschroedter Not available 11/27 10:19:59 Maternal Grandmother Malignant tumor of breast vschroedter Not available 11/27 10:19:59 Maternal Grandmother Depressive disorder vschroedter Not available 11/27 10:19:59 Maternal Grandmother Heart disease vschroedter Not available 11/27 10:19:59 Maternal Grandmother Mental disorder vschroedter Not available 11/27 10:19:59 Maternal Grandmother Kidney disease vschroedter Not available 11/27 10:19:59 Sister Anxiety disorder vschroedter Not available 11/27 10:19:59 Sister Depressive disorder vschroedter Not available 11/27 10:19:59 Sister High risk vschroedter Not available 11/27 10:19:59 Sister Mental disorder vschroedter Not available 11/27 10:19:59 Maternal Grandfather Depressive disorder vschroedter Not available 11/27 10:19:59 Maternal Grandfather Heart disease vschroedter Not available 11/27 10:19:59 Maternal Grandfather Diabetes mellitus vschroedter Not available 11/27 10:19:59 Medical History Condition Response Other N Blood Transfusion N Dermatologic Disorders N Gestational Diabetes N Anxiety Disorder Y Autoimmune disease N Arthritis N Polyps N Infertility N Acid Reflux (GERD) N Cancer N Varicosities N Stroke N Neurologic/Epilepsy N Fibromyalgia N Headaches N Kidney Disease N Heart Problems N Kidney or Bladder Problems N Eating Disorder N Art (IVF or FET) N Hepatitis/Liver Disease N Urinary Tract Infection N Asthma Y Trauma/Violence N Thrombophilias N Allergies (Food, seasonal, environmental ) N Breast Cancer N Drug/Latex Allergies/Reactions N Lung Disease N Defects or Inherited Disease N Breast Problem N Hematologic disorders N Anesthesia Complications N History of STI N Deep Vein Thrombosis N Polycystic ovary syndrome N History of abnormal pap N Endometriosis N High Cholesterol N Thyroid Problems N GI Problems N Anemia N Psychiatric Illness N Ovarian Cancer N Diabetes N Pulmonary (TB, Asthma) N Eczema N Abuse/Domestic Violence N Depression/ depression N Heart Disease N Pre-Eclampsia N Hypertension N Osteoporosis N Gynecological History Statement/Question Response Flow Moderate Date of LMP 02/29/2024 On BCP's at Conception? N N Was last menstrual period normal Y STIs/STDs N HPV Vaccine N Duration of Flow (days) 5 Current Control Method Sexually Active? Y Age of first menstrual cycle 8 Date of Last Pap Smear Sexual Problems? Yes LMP Definite N Obstetrics History GPAL:G 2 P 0 0 1 0 Type Value Spontaneous 1 Total 2 Past Encounters Encounter ID Performer Location Encounter Start Date Encounter Closed Date Diagnosis/Indication Diagnosis SNOMED-CT Code Diagnosis ICD10 Code Diagnosis Note [id number] Misty Pedroza , [facility] [address] [address] 02/28/2020 13:23:52 02/28/2020 14:31:17 Contraception care management 330173101 Z30.9 Wants to switch Nexplanon out for OCP. Also considerin g IUD at some point. Her mother was present for this visit. Discussed all control options in great detail. Pt would like to start ocp. She is aware of the risks and benefits. She does not have any medical condition that is contraindi cated with the use of estrogen containing control. Pt will start her pills on the first wednesday following the start of her period. She is aware it is not effective for control the first month. She is also aware of the importance of taking at the same time every day. Encouraged use of condoms as the pill does not protect against STD's. Will return in 3 months for med check. Consent was read and signed. Pt verbalized understand ing. Discussed all control options and pt would like to consider Mary/Jason jeniffer/mirena IUD. I have discussed in detail all risks and benefits including risk of infection and perforatio n. She understand s she will need to contact office with next menses or may abstain, complete serum HCG day before placement, if neg can have IUD placed next day. Aware of need to verify with insurance device coverage. Literature given. All questions answered to patient satisfacti on. We agreed to start pills so there is no lapse in BC coverage since she is SA & mom is aware. Return f/u x 1mos for BCP CHeck & Nexplanon removal. If finds she is not compliant with BCP then consider placing IUD at that visit. Nexplanon expires 11/26/2020 Declines need std screen-rec ently has this done. NEW Time spent in visit is a total of 30 mins with at least 50% of visit consisting of counseling and review of plan of care. [id number] [facility] [address] [address] 03/29/2020 15:54:55 03/29/2020 16:26:02 Removal of subcutaneous contraceptive [id number] Z30.46 Removal site was cleansed with betadine [id number] lidocaine used for anesthesia . Device was removed in normal fashion without difficulty . Steristips and pressure bandage placed. [facility] ion care management [id number] Z30.9 Did well on OCP's very compliant. Would like to continue. RF sent Will RTO x 1yr or prn [id number] ROC Ayers [place] [address] [address] 12/16/2022 09:59:21 12/16/2022 12:18:42 Pain in pelvis 53640418 R10.2 UPT (-)bhcg ordered for confirmati ongc/ct/tr ich testing sentvagini tis panel senturine cx sentvulvar care guidelines discussede ncouraged daily PNVf/u with PCP on episode of chest pain that occurred 1 week ago. Precaution s discussed - if chest pain returns, needs to go to ED for evaluation to notify the office with any increasing pelvic pain, etc - if pain returns will consider pelvic u/s Time spent in visit is a total of 35 mins with at least 50% of visit consisting of counseling and review of plan of care. Irregular periods 275445 07 N92.6 Contracept ion care management 436687920 Z30.9 Venereal d isease screening 246313547 Z11.3 Amenorrhea 13585779 N91. 2 Vaginal discharge 979270 006 N89.8 [id number] LEONARD WALLACE MD [place] [address],[place] [address] 03/28/2024 12:37:12 03/28/2024 14:05:25 Irregular periods 51440794 N92.6 - patient reports irregular periods since miscarriag e 1 year ago- some months are extremely heavy flow while others are light- lab evaluation ordered as below Contracept ion care management 079447244 Z30.9 Discussed with patient risks, benefits, and alternativ es of contracept ion. Discussed all options, including natural family planning, condoms, combined oral contracept emeka, contracept izabela patch, Nuva-ring, Depo-Prove ra, Nexplanon, intrauteri ne device. Advised that of the above listed options, only condoms can prevent sexually transmitte d infections and that condoms can be used together with any form of contracept ion. Patient has no contraindi cations. Patient reports that she has used Nexplanon in the past. After extensive counseling , patient at this time desires Mirena IUD. [id number] Jovana Barboza [place] [address],[place] [address] 05/02/2024 12:10:29 05/02/2024 12:30:09 [id number] LEONARD WALLACE MD [place] [address],[place] [address] 05/02/2024 12:11:33 05/04/2024 12:26:11 Nausea and vomiting 24058938 R11.2 test positive 281747415 Z32.01 1. Exam today within normal limits.2. Ultrasound today confirms GA and viability. EDC . GC/Clamydi a testing done: will f/u as indicated. 4. ACOG guidelines and plan of care for reviewed with patient. All questions answered.5 . Return to office at 12 weeks for new OB visit6. Will need new OB labs at next visit.7. Genetic screening: desires Marijuana user 626882544 F12.90 - discussed cessation and effects on Electronic cigarette user 010361289 Z72.89 - discussed cessation and effects on [id number] [facility] [address],[place] [address] 05/24/2024 11:39:10 05/24/2024 13:59:19 screening 453870644 Z36.82 Z3A.12 [id number] LEONARD WALLACE MD [place] [address],[place] [address] 05/24/2024 11:39:27 05/24/2024 14:21:51 Anxiety in 1927915996 9109 F41.9 Gestation period, 12 weeks 55764307 Z3A.12 - continue PNV [id number] LEONARD WALLACE MD [place] [address],[place] [address] 06/07/2024 15:02:37 06/08/2024 13:12:14 Dizziness 486418763 R42 - likely 2/2 stress vs vasovagal episode- discussed precaution s, will monitor symptoms for now- discussed further workup with grounds maintenance worker if symptoms continue- no s/s of chronic HTN [id number] LEONARD WALLACE MD [place] [address],[place] [address] 06/23/2024 14:28:14 06/23/2024 15:01:27 Nausea and vomiting 55491067 R11.2 Gestation period, 16 weeks 65303492 Z3A.16 [id number] [facility] [address],[place] [address] 07/19/2024 13:30:50 07/19/2024 14:58:28 screening for malformation 698977988 Z36.3 Z3A.20 [id number] LEONARD WALLACE MD [place] [address],[place] [address] 07/19/2024 13:32:28 07/20/2024 09:39:22 Routine care 676890392 Z34.91 [id number] LEONARD WALLACE MD [place] [address] [address] 08/22/2024 17:13:47 08/22/2024 17:59:32 screening 492263592 Z36.89 O36.0130 Gestation period, 25 weeks 03934787 Z3A.25 Health Concerns Section Related Observation LastModified by Organization Detai ls LastModified Time None Recorded Concern Status LastModified by Organization Details LastModified Time None Recorded Advance Directives Directive None Recorded Payers Encounter Date Sequence Insurance Name Policy Number Policy Alanis Covered Member ID Alanis Member ID Guarantor Name 06/07/2024 1 [facility] [id number] Jesus Powell Niederbra [id number] [facility] 06/23/2024 1 [facility] [id number] Jesus Powell Niederbrach [id number] [facility] 07/19/2024 1 [facility] [id number] Jesus Powell Niederbrach [id number] [facility] 07/19/2024 1 [facility] [id number] Jesus Powell Niederbrach [id number] [place] 08/22/2024 1 [facility] [id number] Naomi Niederbra [id number] [facility] Notes Date Note Type Note Provider Name and Address Organization Details Recorded Time 06/07/2024 text/html Patient was seen on 06/02 in the ER for elevated BP at work. She reports at work her BP was 158/100. She also reports palpitations and dizziness. Denies LOC. Workup negative at ER, BP wnl. LEONARD WALLACE MD [address], [place], [address], [facility] 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 r isk Buck Calculation Initial Buck Date Initial Exam Date Initial Exam Provider Initial Ultrasound Date Last Menstrual Period Date Ultra Sound Weeks Gestation 12/05/2024 05/24/2024 05/02/2024 02/29/2024 8 Eighteen To Twenty Week Buck Update Ultra Sound Date Fundal Height At Umbil Quickening Date Ultra Sound Latest Weeks Gestation Final Buck Confirmed By Final Buck Confirmed Date Final Buck Date Ultra Sound Latest Days Gestation 0 [id number] 05/24/2024 12/06/19 25 0 Pre- Flowsheet Flowsheet Date 05/24/2024 Rodriguez Score Blood Edema Fundus Height Fundus Units Glucose Ketones Leukocytes Nitrite Labor Signs Protein Cervic Dilation Cervic Effacement Cervic Station Type Weight in lbs Pre/Post Dialysis Refused BP Diastolic BP Location Tested BP Systolic BP Type Fetus Heart Rate Present Fetus Movement Comments Flowsheet Date 05/24/2024 Rodriguez Score Blood Edema Fundus Height Fundus Units Glucose Ketones Leukocytes Nitrite Labor Signs Protein Cervic Dilation Cervic Effacement Cervic Station Type Weight in lbs Pre/Post Dialysis Refused Weight 155.612330944396 BP Diastolic BP Location Tested BP Systolic BP Type 77 L arm 111 sitting Fetus Heart Rate Present A Present Fetus Movement Comments Presents to establish prenat al care. Nausea improving, no cramping or bleeding. Reports increasing anxiety, would like to start zoloft. Denies SI/HI. Reports anxiety outside of however has not been medicated. NT/NB wnl today, will draw NIPT with new OB labs. RTC 4 weeks. Flowsheet Date 06/07/2024 Rodriguez Score Blood Edema Fundus Height Fundus Units Glucose Ketones Leukocytes Nitrite Labor Signs Protein Cervic Dilation Cervic Effacement Cervic Station Type Weight in lbs Pre/Post Dialysis Refused Weight 163.419135582368 BP Diastolic BP Location Tested BP Systolic BP Type 69 L arm 118 sitting Fetus Heart Rate Present A 140 Fetus Movement Comments Problem visit, see note. F/u ER visit for hypertension Flowsheet Date 06/23/2024 Rodriguez Score Blood Edema Fundus Height Fundus Units Glucose Ketones Leukocytes Nitrite Labor Signs Protein Cervic Dilation Cervic Effacement Cervic Station neg none Type Weight in lbs Pre/Post Dialysis Refused 164.13059532167 BP Diastolic BP Location Tested BP Systolic BP Type 76 L arm 110 sitting Fetus Heart Rate Present A 140 Fetus Movement A No Comments Patient c/o of nausea. Zofra n helping but not lasting enough. Will start reglan. No further vasovagal/anxiety episodes. No cramping or bleeding. Zoloft helping with mood. Discussed anatomy US for next visit. RTC 4 weeks. Flowsheet Date 07/19/2024 Rodriguez Score Blood Edema Fundus Height Fundus Units Glucose Ketones Leukocytes Nitrite Labor Signs Protein Cervic Dilation Cervic Effacement Cervic Station Type Weight in lbs Pre/Post Dialysis Refused BP Diastolic BP Location Tested BP Systolic BP Type Fetus Heart Rate Present Fetus Movement Comments Flowsheet Date 07/19/2024 Rodrigeuz Score Blood Edema Fundus Height Fundus Units Glucose Ketones Leukocytes Nitrite Labor Signs Protein Cervic Dilation Cervic Effacement Cervic Station neg none Type Weight in lbs Pre/Post Dialysis Refused 173.112772557011 BP Diastolic BP Location Tested BP Systolic BP Type 71 L arm 113 sitting Fetus Heart Rate Present A 141 Fetus Movement A Yes Comments Patient c/o slight nausea. G ood movement. No cramping or bleeding. Anatomy complete and normal, EFW 31%. Repeat growth at 32-36 weeks. Mood stable on Zoloft. RTC 4 weeks. Flowsheet Date 08/22/2024 Rodriguez Score Blood Edema Fundus Height Fundus Units Glucose Ketones Leukocytes Nitrite Labor Signs Protein Cervic Dilation Cervic Effacement Cervic Station neg none Type Weight in lbs Pre/Post Dialysis Refused 185.700346229353 BP Diastolic BP Location Tested BP Systolic BP Type 78 L arm 123 sitting Fetus Heart Rate Present A 145 Fetus Movement A Yes Comments Patient c/o of slight nausea , along with a sharp pains she gets in her side, appear to be round ligament pain. Good movement. No cramping or bleeding. GCT and lab orders given today. RTC 3 weeks. Menstrual History Last Menstrual Date Menses Monthly On Bcp Conception Prior Menses Frequency Hcg Plus Date Menarche Onset Age 0902/29/20[birth year] Delivery Information Delivery Date Delivery Type Labor Anesthesia Weeks Gestation Incision Type Labor Labor Length Hrs Delivered By Post Complications Tubal Sterilization Discharge Date Comments Discharge Information Feeding Method Contraceptive Method Maternal HG B and HCT Levels Ob Episode Information Episode Created Date Number of Fetuses Patient Bloodtype Patient rh Status Prepregnancy Weight lbs Domestic Partner Domestic Partner Phone Father Name Loom Control Chain Builder Status 03/28/20 24 1 CLOSED Fetus Data First Name Last Name Admitted to NICU Weight (g) Sex Living Outcome Pediatric Complications Fetus ID Race Codes Race Delivery Type , Spontane ous [id number] Buck Calculation Initial Buck Date Initial Exam Date Initial Exam Provider Initial Ultrasound Date Last Menstrual Period Date Ultra Sound Weeks Gestation 0 Eighteen To Twenty Week Buck Update Ultra Sound Date Fundal Height At Umbil Quickening Date Ultra Sound Latest Weeks Gestation Final Buck Confirmed By Final Buck Confirmed Date Final Buck Date Ultra Sound Latest Days Gestation 0 0 Menstrual History Last Menstrual Date Menses Monthly On Bcp Conception Prior Menses Frequency Hcg Plus Date Menarche Onset Age Delivery Information Delivery Date Delivery Type Labor Anesthesia Weeks Gestation Incision Type Labor Labor Length Hrs Delivered By Post Complications Tubal Sterilization Discharge Date Comments 3 Discharge Information Feeding Method Contraceptive Method Maternal HG B and HCT Levels
--- OUTSIDE RECORDS SUMMARY | 2024-09-06 17:43 | XMS_ITS | Referral Summary ---
Author Organization [facility] Address [address] [place] [address] Care Team Providers Care Box Puller Name Role Phone Unavailable Primary Care Provider Unavailabl e Source Comments [facility],non-owned Affiliates and Associated Physician Practices is amultiple site organization consisting of ambulatory clinics and hospital sitesin [place], [place] and [place]. This disclosure is being madepursuant to the Care Everywhere program and may not contain all information available regarding this patient. Last updated 18.[facility] Allergies Active Allergy Reactions Criticality Noted Date Comments Codeine Rash Medium 08/30/2016 Medications Be aware that medications may not be up to date on this document. Always verify current medications with the patient. 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/2016 Social History Tobacco Use Types Packs/Day Years Used Date Smoking Tobacco: Never Smokeless Tobacco: Never Alcohol Use Standard Drinks/Week Comments No 0 (1 standard drink = 0.6 oz pur e alcohol) Sex and Gender Information Value Date Recorded Sex Assigned at Not on file Gender Identity Not on file Sexual Orientation Not on file Last Filed Vital Signs Vital Sign Reading Time Taken Comments Blood Pressure 110/72 10/19/2016 7:00 PM CDT Pulse 76 10/19/2016 7:00 PM CDT Temperature 36.6 C (97.8 F) 10/19/2016 5:38 PM CDT Respiratory Rate 16 10/19/2016 7:00 PM CDT Oxygen Saturation 96% 10/19/2016 6:45 PM CDT Inhaled Oxygen Concentration - - Weight 70.3 kg (154 lb 15.7 oz) 10/19/2016 1:20 PM CDT Height 159.6 cm (5' 2.84 ) 10/19/2016 1:20 PM CD T Body Mass Index 27.6 10/19/2016 1:20 PM CDT Plan of Treatment Not on file [address] [place] [address]
--- OUTSIDE RECORDS SUMMARY | 2024-09-06 17:43 | XMS_ITS | Patient Health Summary ---
Author Organization [facility] Address [address] [place] [address] Care Team Providers Care Bartender Helper Name Role Phone Unavailable Primary Care Provider Unavailabl e Note from [facility],non-owned Affiliates and Associated Physician Practices is amultiple site organization consisting of ambulatory clinics and hospital sitesin [place], [place], [place] and [place]. This disclosure is being madepursuant to the Care Everywhere program and may not contain all information available regarding this patient. Last updated 18.[facility] Allergies * Codeine(Rash) -Medium Criticality Medications Be aware that medications may not [...] Mass Index 27.6 10/19/2016 1:20 PM CDT Procedures * GROSS EXAM PATHOLOGY (STL)(Performed 10/19/2016) Performed for Acute adenotonsillitis * TONSILLECTOMY AND ADENOIDECTOMY(Performed 10/19/2016) Performed for Acute adenotonsillitis * HCG URINE QUALITATIVE - POCT (IP) BEAKER(Performed 10/19/2016) * STREP A SCREEN DIRECT W RFLX STREP A CULTURE(Performed 08/30/2016) Results * GROSS EXAM PATHOLOGY (STL) (10/19/2016 5:05 PM CDT) Case Report Surgical Pathology Report Case: [id number] Authorizing Provider: Yuri Jordan MD Collected: 10/19/2016 05:05 PM Ordering Location: [facility] Received: 10/20/2016 07:52 AM Pathologist: Grayson Jackson MD Specimen: Tonsil(s), Tonsils 10/21/2016 9:19 AM T [facility] Final Diagnosis GROSS DIAGNOSIS: PALATINE TONSILS. 10/21/2016 9:19 AM [facility] Clinical History The patient is a 11-year-old girl with acute adenotonsillitis who underwent tonsillectomy. 10/21/2016 9:19 AM T [facility] Gross Description Received fixed in formalin in one container for gross examination only, labeled with the patient's name, Naomi Can, and bilateral tonsils, are two egg-shaped, pink-partida palatine tonsils measuring 3.1 x 1.5 x 1.5 cm and 2.9 x 1.5 x 1.1 cm weighing 11 g combined. On cut surface, the tonsils have a cerebriform yellow-partida appearance. No sections are taken. (KH/ns) 10/21/2016 9:19 AM CDT [facility] Embedded Images 10/21/2016 9:19 AM CDT [facility] Pathology/Cytolo gy SPECIMEN FROM TONSIL / Unknown 10/19/2016 5:05 PM CDT 10/20/2016 7:52 AM CDT Yuri Jordan MD LAB - PATHOLOGY/CYTO LOGY ORDERABLES Performing Organization Address [facility] Co de Phone Number [facility] [address] [place] [address] * HCG URINE QUALITATIVE - POCT (IP) BEAKER (10/19/2016 2:30 PM CDT) HCG Qual Urine Negative Negative [facility] POCT TESTING QC Verified Yes Yes [facility] PO CT TESTING Urine URINE / Unknown 10/19/2016 2 :30 PM CDT Yuri Jordan MD LAB - POINT OF CARE ORDERABLES Performing Organization Address [facility] de Phone Number [facility] POCT TESTING [address] [phone] * (ABNORMAL) STREP A SCREEN DIRECT W RFLX STREP A CULTURE (08/30/2016 4:56 PM QC SCIENTIST) Strep A Rapid Positive(A ) Negative 08/30/2016 5:16 PM QC SCIENTIST [facility] Microbiology ENTIRE THROAT (SURFACE REGION OF NECK) / Unknown 08/30/2016 4:56 PM QC SCIENTIST 08/30/2016 5:12 PM QC SCIENTIST Jewel Sahni MD LAB - MICROBIOLOGY O RDERABLES Performing Organization Address [facility] Co de Phone Number [facility] [address] [place] [address]
--- OUTSIDE RECORDS SUMMARY | 2024-09-06 17:43 | XMS_ITS | Clinical Summary ---
Author Organization [facility] Address [address] [place] [address] Care Team Providers Care Shrimp Cleaner Name Role Phone Unavailable Primary Care Provider Unavailabl e Source Comments [facility],non-owned Affiliates and Associated Physician Practices is amultiple site organization consisting of ambulatory clinics and hospital sitesin [place], [place], [place] and [place]. This disclosure is being madepursuant to the Care Everywhere program and may not contain all information available regarding this patient. Last updated 18.[facility] Allergies Active Allergy Reactions Criticality Noted Date [...] 10/19/2016 1:20 PM CDT Plan of Treatment Health Maintenance Due Date Last Done Comments HIV SCREENING 2019 HPV VACCINE (1 - 3-dose series) 2019 CHLAMYDIA/GONORRHEA SCREENING 2020 MENINGOCOCCAL (Group B) VACC INE SHARED DECISION-MAKING (1 of 2 - Standard) 2020 HEPATITIS C SCREENING 06/09/2022 DTAP/TDAP/TD VACCINES (1 - Tdap) 2023 HEPATITIS B VACCINE (1 of 3 - 19+ 3-dose series) 2023 COVID-19 VACCINE (1 - 2023-2 5 season) 2024 INFLUENZA VACCINE (#1) 2024 DEPRESSION SCREENING 06/28/2024 ZOSTER VACCINE (1 of 2) 2054 HIB VACCINE Aged Out No longer eligi ble based on patient's age to complete this topic MENINGOCOCCAL GROUPS A/C/Y/W VACCINE Aged Out No longer eligible b ased on patient's age to complete this topic PNEUMOCOCCAL VACCINE Aged Out No long er eligible based on patient's age to complete this topic
[2024-09-06 17:49] LABS: Glucose 1 Hour PP 50gm Dose 115 mg/dL
[2024-09-06 18:30] LABS: HIV 1/2 Ab P24 Ag Result Negative (Negative)
[2024-09-07] MEDS: RHO(D) IMMUNE GLOBULIN 300 MCG/2 ML SYRINGE IM (16:04)
== END 2024-09-06 15:51 | disposition home or self-care (01) ==
PROVIDERS: PCP Obstetrics & Gynecology; Visit Provider Obstetrics & Gynecology
DX: O36.0130 Maternal care for anti-D [Rh] antibodies, third trimester, not applicable or unspecified (principal); Z3A.00 Weeks of gestation of pregnancy not specified
CPT/HCPCS: 36415; 82947; 85014; 85018; 85461; 86703; 86850; 86900; 86901; 90384; 96372; G0432; J2790

== ENCOUNTER 2024-11-01 09:56 | Observation (INO) | payer OTHER, SELFPAY ==
[2024-11-01 10:23] VITALS: BMI 33.0
--- NOTE | 2024-11-01 10:27 | OBADM ---
This patient, Naomi Can, admitted to the OB room OB Post 116 for observation. Patient/family oriented to hospital policies and general routines including ID bracelet, bed and alarms, visiting hours, pain management, procedures, bathroom and other care routines, personal items, smoking policy, room service/diet, and visiting hours. Patient/Family are encouraged to report perceived risks to care and to ask questions if they do not understand what they are told or what they should do.
[2024-11-01 10:28] LABS: Add Urine Microscopic? YES; Appearance Urine Clear (Clear); Bacteria Urine Rare /hpf; Bilirubin Urine Negative (Negative); Blood Urine Negative (Negative); Color Urine Yellow (Yellow); Glucose Urine UA Negative (Negative); Ketones Urine 1+ mg/dL (Negative); Leukocyte Esterase Ur Trace LEU/UL (Negative); Nitrate Urine Negative (Negative); Non Pathogenic Casts 0-2; Protein Urine Negative (Negative); RBC Urine 0-2 /hpf (0-2); Specific Grav Ur 1.011 (1.001-1.035); Squamous Epithelial Cell Urine Few /hpf (Few); WBC Urine 0-5 /hpf (0-3); pH Urine 6.5 (5.0-9.0)
[2024-11-01 10:30] VITALS: BP 109/65; PULSE 76
--- OUTSIDE RECORDS SUMMARY | 2024-11-01 10:42 | XMS_ITS | Clinical Summary ---
Author Organization [facility] Address [address] [place] [address] Phone Care Team Providers Care Manager Welding Name Role Phone Provider, None Primary Care [...] diagnosis. Assessment & Plan (08/20/2020 1:18 PM SCREENING TECH): LFTs reordered today to trend numbers as [...] 04/30/2020 Assessment & Plan (04/30/2020 1:42 PM SCREENING TECH): Patient with significant weight gain since last [...] meds, she is to let us know. [facility] recommended. Derm referral also placed [...] mom's request. Mom states that her last organic search lead exhausted all options and told her next step was dermatology, however they moved prior to being able to get this done. Patient is not currently on any medication for acne. Major depressive disorder 04/17/2019 Overview (07/17/2019): 01/11/2019 - D/c from [facility] after 30 day admission for residential treatment with history of alcohol and marijuana use and struggling with anxiety, depression, and PTSD. Pt successfully completed program and no longer requires this level of care. Follow up outpatient therapy and psych for continued treatment. Medications at discharge include: Melatonin 3mg at bedtime, Excedrin Migraine [id number] BID prn for migraines, Minipress 2mg capsules at bedtime for PTSD, Hydroxine 25mg BID prn anxiety, Lexapro 15mg (1& 1/2 10mg tabs) daily for depression. 11/12/2017 - PHQ-9 in office score 12. Depression managed by Viv Cox. Assessment & Plan (05/22/2020 12:55 PM SCREENING TECH): Pt states her symptoms are much improved [...] ~1mo. Assessment & Plan (04/30/2020 1:39 PM SCREENING TECH): Restarted Lexapro 15mg. Told patient that I [...] well. Patient recently got a job at [employer] and is excited about her first [employer]. Patient reports that her mom and her have become very close and she is happy about that. Congratulated patient on all her accomplishments. Patient to follow up if mood starts to deteriorate again. Assessment & Plan (05/18/2019 10:43 AM SCREENING TECH): Per review of [facility] records, patient was on Lexapro 15mg and [...] Psych and receive Therapy services [facility] or [facility]. Mom would like to take patient to [facility] as it is closer to their home. Mom given the phone number for [facility] and encouraged her to get patient in as soon as possible. Told mom that if she is unable to get patient in with [facility], to call the office and we will put in a Behavioral Health Navigator referral to get patient started. Will request records from [facility] so that we can refill the medication that she is currently on in addition to Lexapro. Per mom, they still have some of the medication in a blister pack card left from the facility. Refill sent for Lexapro 10mg to patient's pharmacy. Follow up in 4 weeks or sooner if symptoms worsen. Will call mom when we have records from [facility] and can fill the other medication. Mom [...] negative, rapid strep negative, throat culture negative, Kidder negative. Explained to Mom DDX of viral exanthem, Kidder like illness, scarlet fever. Explained that I [...] 02/22/20 Assessment & Plan (05/18/2019 10:52 AM SCREENING TECH): Patient appears ill in office, laying on [...] will call with appointment details. Mom prefers [facility] for Ortho. Acute infective otitis externa of left ear 02/24/2019 03/18/2020 Acute recurrent adenotonsillitis 09/01/2016 03/18/2020 Immunizations Immunization Administration Dates Next Due Covid-19, Mrna, Lnp-s, Pf, 3 0 Mcg/0.3 Ml Dose ([employer]) 12/03/2020,11/11/2020 DTAP-IPV 03/25/2010 DTAP/HEPB/IPV Vaccine 09/18/2005, 005,02/03/2005,08/20 [...] Sex Assigned at Female 05/15/2024 8:39 PM SCREENING TECH Legal Sex Female 8:18 PM CDT Gender Identity Female 05/15/2024 8:39 PM SCREENING TECH Sexual Orientation Not on file Occupation Industry Job Start Date Job End Date Student/ Child Not on file Not on file Not on file Last Filed Vital Signs Vital Sign Reading Time Taken Comments Blood Pressure 117/64 05/15/2024 8:27 PM SCREENING TECH Pulse 88 05/15/2024 8:27 PM SCREENING TECH Temperature 36.7 C (98.1 F) 05/15/2024 8:27 PM SCREENING TECH Respiratory Rate 18 05/15/2024 8:27 PM SCREENING TECH Oxygen Saturation 100% 05/15/2024 8:27 PM SCREENING TECH Inhaled Oxygen Concentration - - Weight 70.3 kg (155 lb) 05/15/2024 8:27 PM SCREENING TECH Height 162.6 cm (5' 4) 05/15/2024 8:27 PM SCREENING TECH Body Mass Index 26.61 05/15/2024 8:27 PM SCREENING TECH Plan of Treatment Health Maintenance Due Date [...] patient's age to complete this topic Insurance [facility] Care Teams Manager Welding Relationship Specialty Start Date End Date Provider, None [place] PCP - General 05/15/24
--- OUTSIDE RECORDS SUMMARY | 2024-11-01 10:42 | XMS_ITS | Clinical Summary ---
Author Organization [facility] Address [address] [place] [address] Care Team Providers Care Residential Service Technician Name Role Phone Unavailable Primary Care Provider Unavailabl e Source Comments [facility],non-owned Affiliates and Associated Physician Practices is amultiple site organization consisting of ambulatory clinics and hospital sitesin [place], [place], [place] and [place]. This disclosure is being madepursuant to the Care Everywhere program and may not contain all information available regarding this patient. Last updated 18.[facility] Allergies Active Allergy Reactions Criticality Noted Date Comments Codeine Rash Medium 08/30/2016 Medications * Be aware that medications may not be up to date on this document. Alwaysverify current medications with the patient. 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 Gender Identity Not on file Sexual Orientation [...] 1:20 PM CDT Height 159.6 cm (5' 2.84) 10/19/2016 1:20 PM CD T Body Mass [...] VACCINE (1 - 2023-2 5 season) 2024 DEPRESSION SCREENING 06/28/2024 INFLUENZA VACCINE (Season Ended) 2025 ZOSTER VACCINE (1 of 2) 2054 HIB VACCINE Aged Out No longer eligi ble based on patient's age to complete this topic MENINGOCOCCAL GROUPS A/C/Y/W VACCINE Aged Out No longer eligible b ased on patient's age to complete this topic PNEUMOCOCCAL VACCINE Aged Out No long er eligible based on patient's age to complete this topic Insurance [facility] [place] [facility]
--- OUTSIDE RECORDS SUMMARY | 2024-11-01 10:42 | XMS_ITS | Data Portability ---
Author Organization [facility] Address [address] [address] Assessment Encounter Date Assessment Date Assessment LastModified by Organization Details LastModified Time 09/27/2024 09/27/2024 Patient is ___weeks . Discussed plan. [email or web address] Not available 09/27/2024 16:52:12 10/11/2024 10/11/2024 Patient is ___weeks . Discussed plan. Not available 10/11/2024 18:16:36 10/25/2024 10/25/2024 Patient is ___weeks . Discussed plan. Not available 10/25/2024 16:58:18 Plan of Treatment Reminders Order Date Submit Date Provider Last Modified By Organization Details Last Modified Time Details Appointments U/S OB GROWTH 2024 09:30A M ULTRASOUND Not available Not available Not available OB ROUTINE 2024 10:15A M Annika Chavira CNM Not available Not available Not available Lab None recorde d. Referral None recorde d. Procedures None recorde d. Surgeries None recorde d. Imaging US, obstetr ic, follow- up 20[facility] [place], [address], [address], [place], [address], 10/12/2024 09:43:52 Medication Orders None recorde d. Patient TargetsNo targets recorded. Patient InstructionsNo instructions recorded. Reason for Referral None Reported. Results Created Date Observation Date Name Description Value Unit Range Abnormal Flag Note LastModifiedBy Organization Detail LastModifiedTime 10/12/19 25 10/11/2024 US, obste tric, follo w-up No observ ation record ed. [email or web address], [place], [address], 10/12/2024 09:27:26 10/12/19 25 10/12/2024 US, obste tric, follo w-up No observ ation record ed. [facility] [address], [place], [address], 10/12/2024 13:53:59 Result Notes None recorded. Problems Name Problem SNOMED Code Status Onset Date Resolution Date Notes Provider Name and Address Organization Details Recorded Time 40902700 Active 2023 Antoinette Flores null, [facility] 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 4 17:19:41 Migraine 12288722 Active WITH AURA, rxed fioricet, rec. excedrine tension Jose Mclean MD [address], [place], [address], [facility] 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 5 16:14:33 Problem Notes None recorded. Procedures Surgical History Date Name Laterality Status Provider Name and Address Organization Details Recorded Time 0 Control Implant Removal completed [facility]- [address], [place], [address], [facility] 03/29/2020 16:21:45 tonsilectomy /adenoids completed Venice Meehan [facility] 02/28/2020 13:48:39 Imaging Results Imaging Date Name Status LastModified by Organiz ation Details LastModified Time 10/11/2024 US, obstetric, follow-up completed [email or web address], [place], [address], 10/12/2024 09:27:26 10/12/2024 US, obstetric, follow-up completed [facility] [address], [place], [address], 10/12/2024 13:53:59 Procedure Notes None recorded. Medical Equipment None [...] completed Not Available Not Available Not Available butalbital- acetaminoph en-caffeine 50 mg-325 mg-40 mg tablet Take 1 tablet every 4 hours by oral route. active Not Available Not Available No t Available ondansetron 8 mg disintegrat ing tablet Place 1 tablet every 6-8 hours by transling ual route as needed. 09/11 completed Not Available Not Available Not Available amoxicillin 875 mg tablet TAKE 1 TABLET BY MOUTH TWICE DAILY 12/16 completed Not Available Not Available Not Available phenazopyri dine 100 mg tablet TAKE 1 TABLET BY MOUTH THREE TIMES DAILY NEEDED FOR URINARY PAIN 03/28 completed Not Available Not Available Not Available cephalexin 500 mg capsule TAKE 1 CAPSULE BY MOUTH EVERY 12 HOURS FOR 5 DAYS 10/11 completed Not Available Not Available Not Available [...] Available Not Available Vitals Date Recorded Body weight Body mass index (BMI) [Percentile] Per age and sex Body mass index (BMI) Body height Systolic blood pressure Diastolic blood pressure Provider Name and Address Organization Details Last Updated DateTime 5 66917.7 3504 g 96 % 33.5 kg/m2 161.29 cm 106 mm[Hg] 73 mm[Hg] Nevin Peterson [facility] 16:56:59 Date Recorded Body weight Systolic blood pressure Diastolic blood pressure Provider Name and Address Organization Details Last Updated DateTime 10/11/2024 26496.9197 8 g 120 mm[Hg] 77 mm[Hg] Olga [facility] 10/11/2024 18:17:33 Date Recorded Body height Body mass index (BMI) Body mass index (BMI) [Percentile] Per age and sex Body weight Systolic blood pressure Diastolic blood pressure Provider Name and Address Organization Details Last Updated DateTime 5 161.29 cm 33.3 kg/m2 96 % 56352.1 4 g 114 mm[Hg] 77 mm[Hg] Olga [facility] 16:59:56 Social History Question Answer Notes LastModified by Organizat ion Details LastModified Time Tobacco Smoking Status Never Smoker Quin duron, [facility] 12/16/2022 10:20:12 What Is Your [...] available 12/16/2022 Are You Currently Employed? Yes Information not available 08/22/2024 Are You Deaf Or Do You Have Serious Difficulty Hearing? No Information not available 12/16/2022 What Type Of Diet Are You Following? REGULAR Information n ot available 12/16/2022 What Is The Highest Grade Or Level Of School You Have Completed Or The Highest Degree You Have Received? 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 No Information not available 12/16/2022 Do You Use Protection During Sex? No Information not available 12/16/2022 Do You Use Your Seat Belt Or Car Seat Routinely? Yes Information not available 12/16/2022 Are You Sexually Active? Yes [email or web address] Information not available 08/22/2024 Do You Have Smoke And Carbon Monoxide Detectors In Your Home? Yes Information not available 12/16/2022 How Much Tobacco Do You Smoke? No Information not available 12/16/2022 Do You Feel Stressed (tense, Restless, Nervous, Or Anxious, Or Unable To Sleep At Night)? [id number] Information not available 12/16/2022 Do You Use [...] available 11/27 10:19:59 Medical History Condition Response Allergies (Food, seasonal, environmental ) N Other N Breast Cancer N Drug/Latex Allergies/Reactions N Blood Transfusion N Dermatologic Disorders N Lung Disease N Defects or Inherited Disease N Breast Problem N Gestational Diabetes N Hematologic disorders N Anesthesia Complications N History of STI N Deep Vein Thrombosis N Polycystic ovary syndrome N Anxiety Disorder Y Autoimmune disease N Arthritis N Infertility N Polyps N Acid Reflux (GERD) N History of abnormal pap N Cancer N Stroke N Varicosities N Neurologic/Epilepsy N Endometriosis N High Cholesterol N Headaches N Fibromyalgia N Kidney Disease N Heart Problems N Kidney or Bladder Problems N Thyroid Problems N GI Problems N Eating Disorder N Anemia N Art (IVF or FET) N Psychiatric Illness N Ovarian Cancer N Diabetes N Pulmonary (TB, Asthma) N Hepatitis/Liver Disease N Eczema N Urinary Tract Infection N Abuse/Domestic Violence N Asthma Y Trauma/Violence N Depression/ depression N Heart Disease N Pre-Eclampsia N Hypertension N Osteoporosis N Thrombophilias N Gynecological History Statement/Question Response Flow Moderate [...] SNOMED-CT Code Diagnosis ICD10 Code Diagnosis Note [id number] [facility] [address] [address] 02/28/2020 13:23:52 02/28/2020 14:31:17 Contraception care management 488547839 Z30.9 Wants to switch Nexplanon out for [...] counseling and review of plan of care. [id number] Misty Pedroza , [facility] [address] [address] 03/29/2020 15:54:55 03/29/2020 16:26:02 Removal of subcutaneous contraceptive 608564836 Z30.46 Removal site was cleansed with betadine [id number] lidocaine used for anesthesia . Device was removed in normal fashion without difficulty . Steristips and pressure bandage placed. Contracept ion care management 860173681 Z30.9 Did well on OCP's very compliant. Would like to continue. RF sent Will RTO x 1yr or prn [id number] Evonnemarcelo SinghROC [place] [address] [address] 12/16/2022 09:59:21 12/16/2022 12:18:42 Pain in pelvis 44372227 R10.2 UPT (-)bhcg ordered for confirmati ongc/ct/tr [...] review of plan of care. Irregular periods 483842 07 N92.6 Contracept ion care management 860763675 Z30.9 Venereal d isease screening 933752145 Z11.3 Amenorrhea 87636349 N91. 2 Vaginal discharge 082538 006 N89.8 [id number] LEONARD WALLACE MD [facility] [address] [address] 03/28/2024 12:37:12 03/28/2024 14:05:25 Irregular periods 71500572 N92.6 - patient reports irregular periods since miscarriag e 1 year ago- some months are extremely heavy flow while others are light- lab evaluation ordered as below Contracept ion care management 525079013 Z30.9 Discussed with patient risks, benefits, and [...] patient at this time desires Mirena IUD. [id number] Jose Mclean MD [place] [address],[place] [address] 05/02/2024 12:10:29 05/02/2024 12:30:09 [id number] LEONARD WALLACE MD [place] [address],[place] [address] 05/02/2024 12:11:33 05/04/2024 12:26:11 Nausea and vomiting 97399076 R11.2 test positive 321972602 Z32.01 1. Exam today within normal limits.2. Ultrasound today confirms GA and viability. EDC . GC/Clamydi a testing done: will f/u as indicated. 4. ACOG guidelines and plan of care for reviewed with patient. All questions answered.5 . Return to office at 12 weeks for new OB visit6. Will need new OB labs at next visit.7. Genetic screening: desires Marijuana user 982348505 F12.90 - discussed cessation and effects on Electronic cigarette user 814199051 Z72.89 - discussed cessation and effects on [id number] Jose Mclean MD [place] [address],[place] [address] 05/24/2024 11:39:10 05/24/2024 13:59:19 screening 344770052 Z36.82 Z3A.12 [id number] LEONARD WALLACE MD [place] [address],[place] [address] 05/24/2024 11:39:27 05/24/2024 14:21:51 Anxiety in 2769348539 9109 F41.9 Gestation period, 12 weeks 57433201 Z3A.12 - continue PNV [id number] LEONARD WALLACE MD [place] [address],[place] [address] 06/07/2024 15:02:37 06/08/2024 13:12:14 Dizziness 902881341 R42 - likely 2/2 stress vs vasovagal episode- discussed precaution s, will monitor symptoms for now- discussed further workup with sessions clerk if symptoms continue- no s/s of chronic HTN [id number] LEONARD WALLACE MD [place] [address],[place] [address] 06/23/2024 14:28:14 06/23/2024 15:01:27 Nausea and vomiting 38731010 R11.2 Gestation period, 16 weeks 80345163 Z3A.16 [id number] MD Ernie Villatoro [address],[place] [address] 07/19/2024 13:30:50 07/19/2024 14:58:28 screening for malformation 973138864 Z36.3 Z3A.20 [id number] LEONARD WALLACE MD [place] [address],[place] [address] 07/19/2024 13:32:28 07/20/2024 09:39:22 Routine care 324447766 Z34.91 [id number] MD Ernie ORTEGA [address],[place] [address] 08/22/2024 17:13:47 08/22/2024 17:59:32 screening 831398812 Z36.89 O36.0130 Gestation period, 25 weeks 99347844 Z3A.25 [id number] Jose Mclean MD [place] [address],[place] [address] 09/11/2024 15:13:38 09/11/2024 16:21:29 Migraine 18626573 G43.909 [id number] LEONARD WALLACE MD [place] [address],[place] [address] 09/12/2024 16:47:00 09/12/2024 18:00:08 Urinary tract infectious disease 80502632 N39.0 +Nitrites and LEKeflex ordered Routine an tenatal care 497611207 Z34.91 [id number] MD Jessica [place] [address],[place] [address] 09/27/2024 16:35:58 09/27/2024 17:33:37 Routine care 047494468 Z34.03 [id number] MD Ernie Villatoro [address],[place] [address] 10/11/2024 17:31:16 10/12/2024 00:42:34 Routine care 324090941 Z34.03 [id number] Jose Mclean MD [place] [address],[place] [address] 10/11/2024 17:31:40 10/12/2024 09:43:52 Uterine size for dates discrepancy 595841807 O26.849 Z3A.32 [id number] Jose Mclean MD [place] [address],[place] [address] 10/25/2024 16:29:49 10/25/2024 16:52:31 [id number] Jose Mclean MD [place] [address],[place] [address] 10/25/2024 16:54:59 10/26/2024 09:40:15 care status 819454731 Z34.83 Health Concerns Section Related Observation LastModified by Organization Detai ls LastModified Time None Recorded Concern Status LastModified by Organization Details LastModified Time None Recorded Advance Directives Directive None Recorded Payers Encounter Date Sequence Insurance Name Policy Number Policy Alanis Covered Member ID Alanis Member ID Guarantor Name 09/27/2024 1 [facility] [id number] Naomi Niederbrach [id number] Jesus Niederbrach 10/11/2024 1 [facility] [id number] Naomi Niederbrach [id number] Jesus Niederbrach 10/11/2024 1 [facility] [id number] Naomi Niederbrach [id number] Jesus Niederbrach 10/25/2024 1 [facility] [id number] Naomi Niederbrach [id number] Jesus Niederbrach 10/25/2024 1 [facility] [id number] Naomi Niederbrach [id number] [facility] Episode Ob Episode Information Episode Created Date Number of Fetuses Patient Bloodtype Patient rh Status Prepregnancy Weight lbs Domestic Partner Domestic Partner Phone Father Name Chief Projectionist Status 05/24/20 24 1 O Negative 155 Kend[address] Naranjo OPEN Fetus Data First Name Last Name Admitted to NICU Weight (g) Sex Living Outcome Pediatric Complications Fetus ID Race Codes Race Delivery Type [id number] Problems Problem Notes Problem Name Start Date End Date Resolution Snomed Code Not e Migraine 75358656 WITH AURA, rxed fioricet, rec. 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 243814072 rhogam received 09/06/2024 Buck Calculation Initial Buck Date Initial Exam [...] Date Ultra Sound Latest Days Gestation 0 [id number] 05/24/2024 12/06/19 25 0 Pre- Flowsheet Flowsheet [...] Weight in lbs Pre/Post Dialysis Refused Weight 155.365630096660 BP Diastolic BP Location Tested BP Systolic [...] Weight in lbs Pre/Post Dialysis Refused Weight 163.188394601354 BP Diastolic BP Location Tested BP Systolic [...] Type Weight in lbs Pre/Post Dialysis Refused 164.35105955876 BP Diastolic BP Location Tested BP Systolic [...] Present Fetus Movement Comments Flowsheet Date 07/19/2024 Rodriguez Score Blood Edema Fundus Height Fundus Units Glucose Ketones Leukocytes Nitrite Labor Signs Protein Cervic Dilation Cervic Effacement Cervic Station neg none Type Weight in lbs Pre/Post Dialysis Refused 173.059134141656 BP Diastolic BP Location Tested BP Systolic [...] Type Weight in lbs Pre/Post Dialysis Refused 185.634187560329 BP Diastolic BP Location Tested BP Systolic BP Type 78 L arm 123 sitting Fetus Heart Rate Present A 145 Fetus Movement A Yes Comments Patient c/o of slight nausea , along with a sharp pains she gets in her side, appear to be round ligament pain. Good movement. No cramping or bleeding. GCT and lab orders given today. RTC 3 weeks. Flowsheet Date 09/11/2024 Rodriguez Score Blood Edema Fundus Height Fundus Units Glucose Ketones Leukocytes Nitrite Labor Signs Protein Cervic Dilation Cervic Effacement Cervic Station Type Weight in lbs Pre/Post Dialysis Refused 193.15869802319 BP Diastolic BP Location Tested BP Systolic BP Type 80 L arm 123 sitting Fetus Heart Rate Present A 144 Present Fetus Movement A Yes Comments Reports migraine, throbbing frontal headache, vision changes, paresthesias. She is informed that she has migraine with aura, given precautions about combined hormonal contraceptive pills. Prescribed Fioricet and recommended she try Excedrin tension headache. Flowsheet Date 09/12/2024 Rodriguez Score Blood Edema Fundus Height Fundus Units Glucose Ketones Leukocytes Nitrite Labor Signs Protein Cervic Dilation Cervic Effacement Cervic Station neg trace Type Weight in lbs Pre/Post Dialysis Refused Weight 192.474638840727 BP Diastolic BP Location Tested BP Systolic BP Type 76 L arm 116 sitting Fetus Heart Rate Present A 155 Fetus Movement A Yes Comments Good movement. No cram ping or bleeding. Migraine improved today, has not tried fioricet. Passed GCT, normal Hgb. Received rhogam. Discussed Tdap. Reports new dysuria, UA +nitrites and LE. Will send keflex. Urine culture sent. RTC 2 weeks. Flowsheet Date 09/27/2024 Rodriguez Score Blood Edema Fundus Height Fundus Units Glucose Ketones Leukocytes Nitrite Labor Signs Protein Cervic Dilation Cervic Effacement Cervic Station 27 cm Type Weight in lbs Pre/Post Dialysis Refused 192.386870549428 BP Diastolic BP Location Tested BP Systolic BP Type 73 L arm 106 sitting Fetus Heart Rate Present A 144 Fetus Movement A Yes Comments no complaints, no problems, routine care, no contractions, no vaginal bleeding, no loss of fluid, no cramping, size smaller than dates-growth ultrasound Flowsheet Date 10/11/2024 Rodriguez Score Blood Edema Fundus Height Fundus Units Glucose Ketones Leukocytes Nitrite Labor Signs Protein Cervic Dilation Cervic Effacement Cervic Station Type Weight in lbs Pre/Post Dialysis Refused BP Diastolic BP Location Tested BP Systolic BP Type Fetus Heart Rate Present Fetus Movement Comments Flowsheet Date 10/11/2024 Rodriguez Score Blood Edema Fundus Height Fundus Units Glucose Ketones Leukocytes Nitrite Labor Signs Protein Cervic Dilation Cervic Effacement Cervic Station Type Weight in lbs Pre/Post Dialysis Refused 194.631551854035 BP Diastolic BP Location Tested BP Systolic BP Type 77 L arm 120 sitting Fetus Heart Rate Present A 145 Fetus Movement A Yes Comments reports low back pain, given recommendations and precautions. Flowsheet Date 10/25/2024 Rodriguez Score Blood Edema Fundus Height Fundus Units Glucose Ketones Leukocytes Nitrite Labor Signs Protein Cervic Dilation Cervic Effacement Cervic Station Type Weight in lbs Pre/Post Dialysis Refused Weight 191.439572690522 BP Diastolic BP Location Tested BP Systolic BP Type 77 L arm 114 sitting Fetus Heart Rate Present A 148 Present Fetus Movement A Yes Comments no complaints, no problems, routine care, no contractions, no vaginal bleeding, no loss of fluid, no cramping Flowsheet Date 10/25/2024 Rodriguez Score Blood Edema Fundus Height Fundus Units Glucose Ketones Leukocytes Nitrite Labor Signs Protein Cervic Dilation Cervic Effacement Cervic Station Type Weight in lbs Pre/Post Dialysis Refused BP Diastolic BP Location Tested BP Systolic BP Type Fetus Heart Rate Present Fetus Movement Comments Menstrual History Last Menstrual Date Menses Monthly [...] Domestic Partner Domestic Partner Phone Father Name Chief Projectionist Status 03/28/20 24 1 CLOSED Fetus Data First Name Last Name Admitted to NICU Weight (g) Sex Living Outcome Pediatric Complications Fetus ID Race Codes Race Delivery Type , Spontane ous [id number] Buck Calculation Initial Buck Date Initial Exam [...]
--- OUTSIDE RECORDS SUMMARY | 2024-11-01 10:42 | XMS_ITS | Referral Summary ---
Author Organization [facility] Address [address] [place] [address] Care Team Providers Care Mobile Device Developer Name Role Phone Melanie Lemons MD Primary Care Provider + Renae Campos MD Unavailable [phone] Encounters Date Type Department Care Team Description 09/12/2024 [address] [facility] [address] [place] [address] [address] [place] [address] Olga Medellin MA 08/15/2024 [address]phone [facility] [address] [place] [address] [address] [place] [address] Olga Medellin MA from Last [...] 04/17/2019 Overview (06/06/2022): 01/11/2019 - D/c from [facility] after 30 day admission for residential treatment with history of alcohol and marijuana use and struggling with anxiety, depression, and PTSD. Pt successfully completed program and no longer requires this level of care. Follow up outpatient therapy and psych for continued treatment. Medications at discharge include: Melatonin 3mg at bedtime, Excedrin Migraine [phone] BID prn for migraines, Minipress 2mg capsules [...] drink = 0.6 oz pur e alcohol) [facility] Utilities Answer Date Recorded In the past 12 months has e electric, gas, oil, or water [employer] threatened to shut off services in your [...] often do you attend chur ch or advent services? Never 09/13/2023 Do you belong to any clubs o r organizations such as zoroastrian groups, unions, fraternal or athletic groups, or [...] place to sleep or slept in a residential (including now)? No 09/13/2023 Personal Safety Answer Date Recorded Have you ever been in or are you currently in a harmful physical or emotional relationship or is someone making you feel afraid or unsafe? 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 Gender Identity Not on file Sexual Orientation [...] 5:40 AM CDT Height 161 cm (5' 3.39) 09/12/2023 5:40 AM CDT Body Mass Index [...] 9:07 PM CDT Performed at: 01 - [facility] [address] [id number] Director Of Emergency Nursing: Lesly Valencia MD, Phone: [phone] us Tj Castaneda MD LAB MICROBIOLOGY - GENERAL ORDERABLES Final Result [facility] from Last 3 Months or Most Recently Relevant to Health Maintenance Insurance [employer] [facility] Address: [address] [address] [place] [address] [employer] [facility] [facility]O Address: [address] [address] [place] [address] [facility]O Address: [address] [place] [address] Advance Directives For more information, please contact: [phone] * Full Code (Latest Code Status on File) Date Activated Date Inactivated Comments 09/12/2023 6:01 AM 09/16/2023 3:15 PM Care Teams Mobile Device Developer Relationship Specialty Start Date End Date Melanie Lemons MD PCP - General 08/12/20 Renae Campos MD [address] [address] Referring Physician Internal Medicine 09/16/23
--- OUTSIDE RECORDS SUMMARY | 2024-11-01 10:42 | XMS_ITS | Clinical Summary ---
Author Organization [facility] Address [address] [place] [address] Care Team Providers Care Game Programer Name Role Phone Melanie Lemons MD Primary Care Provider + Renae Campos MD Unavailable [phone] Allergies Active Allergy Reactions Criticality Noted Date [...] 04/17/2019 Overview (06/06/2022): 01/11/2019 - D/c from [facility] after 30 day admission for residential treatment with history of alcohol and marijuana use and struggling with anxiety, depression, and PTSD. Pt successfully completed program and no longer requires this level of care. Follow up outpatient therapy and psych for continued treatment. Medications at discharge include: Melatonin 3mg at bedtime, Excedrin Migraine [id number] BID prn for migraines, Minipress 2mg capsules [...] Type Department Care Team Description 09/12/2024 Telephone [facility] [address] [place] [address] [address] [place] [address] Olga Medellin MA 08/15/2024 Telephone [facility] [address] [facility] [address] [place] [address] Olga Medellin MA from Last [...] drink = 0.6 oz pur e alcohol) [facility] Utilities Answer Date Recorded In the past 12 months has th e electric, gas, oil, or water company threatened [...] often do you attend chur ch or jainism services? Never 09/13/2023 Do you belong to any clubs o r organizations such as latter-day groups, unions, fraternal or athletic groups, or [...] place to sleep or slept in a long term (including now)? No 09/13/2023 Personal Safety Answer Date Recorded Have you ever been in or are you currently in a harmful physical or emotional relationship or is someone making you feel afraid or unsafe? 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 Gender Identity Not on file Sexual Orientation [...] Vaccine (3 - season) 2024 12/03/2020, 11/11/2020 Chlamydia and Gonorrhea (GC/CT) Screening 03/26/2024 03/26/2023 Regular Well Visit/Exam 18-64 03/26/2024 03/26/2023 Influenza Vaccine (Season Ended) 2025 03/18/2020, 04/14/2019, 03/25/2010 DTaP/Tdap/Td Vaccine (7 - Td or Tdap) [...] - 03/29/2023 9:07 PM CDT Performed at: [facility] [id number] Harvesting Supervisor: Lesly Valencia MD, Phone: [phone] us Tj Castaneda MD LAB MICROBIOLOGY - GENERAL ORDERABLES Final Result [facility] from Last 3 Months or Most Recently Relevant to Health Maintenance Insurance [facility] CHOICE PLUS [facility] CHOICE PLUS Advance Directives For more information, please contact: [phone] * Full Code (Latest Code Status on File) Date Activated Date Inactivated Comments 09/12/2023 6:01 AM 09/16/2023 3:15 PM Care Teams Game Programer Relationship Specialty Start Date End Date Melanie Lemons MD PCP - General 08/12/20 Renae Campos MD [address] [place] [address] Referring Physician Internal Medicine 09/16/23
[2024-11-01 10:45] VITALS: BP 119/79; PULSE 97
[2024-11-01 11:00] VITALS: BP 116/58; PULSE 101; TEMP 36.7
[2024-11-01] MEDS: ACETAMINOPHEN 500 MG TABLET 1000 MG PO (11:09)
[2024-11-01 11:15] VITALS: BP 120/68; PULSE 86
[2024-11-01 11:30] VITALS: BP 117/68; PULSE 98
[2024-11-01 11:45] VITALS: BP 119/73; PULSE 91
--- NOTE | 2024-11-24 08:20 | P.PNOB_ITS ---
OB - Triage/Final Diagnosis Visit Information Comments/Additional reasons for admission: I have assessed the risk for this patient, Naomi Can, and determined that she would benefit from observation care. Evaluation Laboratory results: Laboratory Tests 11/01/24 10:17 Urine Color Yellow Urine Appearance Clear Urine pH 6.5 Ur Specific [place] 1.011 Urine Protein Negative Urine Glucose (UA) Negative Urine Ketones 1+ H Ur Blood (Man) Negative Urine Nitrate Negative Urine Bilirubin Negative Urine Urobilinogen 2.0 H Leukocyte Esterase Rfl Trace H Urine RBC 0-2 Urine WBC 0-5 Ur Squamous Epith Cells Few Urine Bacteria Rare Urine Casts 0-2 Final Diagnosis (1) False labor: Code(s): O47.9 - False labor, unspecified Status: Acute
== END 2024-11-01 12:10 | disposition home or self-care (01) ==
PROVIDERS: Admitting Provider Obstetrics & Gynecology; PCP Obstetrics & Gynecology; Visit Provider Obstetrics & Gynecology
DX: O47.03 False labor before 37 completed weeks of gestation, third trimester (principal); Z3A.35 35 weeks gestation of pregnancy
CPT/HCPCS: 81001; A9270; G0378; G0379

== ENCOUNTER 2024-12-06 00:01 | Inpatient (IN) | payer OTHER, SELFPAY ==
[2024-12-06] VITALS (163 sets, daily range): BP systolic 77–142; BP diastolic 31–109; PULSE 28–160; RESP 16–20; TEMP 36.1–37.2; O2SAT 83–100; BMI 33.2
--- OUTSIDE RECORDS SUMMARY | 2024-12-06 00:08 | XMS_ITS | Clinical Summary ---
Author Organization [facility] Address [address] [place] [address] Phone Care Team Providers Care Decorator Store Name Role Phone Provider, None Primary Care [...] diagnosis. Assessment & Plan (08/20/2020 1:18 PM SPECIAL DELIVERY WORKER): LFTs reordered today to trend numbers as [...] 04/30/2020 Assessment & Plan (04/30/2020 1:42 PM SPECIAL DELIVERY WORKER): Patient with significant weight gain since last [...] [facility] dle phalanx of [...] meds, she is to let us know. [place] [facility] recommended. Derm referral also placed [...] mom's request. Mom states that her last hydrometer finisher exhausted all options and told her next step was dermatology, however they moved prior to being able to get this done. Patient is not currently on any medication for acne. Major depressive disorder 04/17/2019 Overview (07/17/2019): 01/11/2019 - D/c from [facility] after 30 day admission for residential treatment with history of alcohol and marijuana use and struggling with anxiety, depression, and PTSD. Pt successfully completed program and no longer requires this level of care. Follow up outpatient therapy and psych for continued treatment. Medications at discharge include: Melatonin 3mg at bedtime, Excedrin Migraine [id number] BID prn for migraines, Minipress 2mg capsules at bedtime for PTSD, Hydroxine 25mg BID prn anxiety, Lexapro 15mg (1& 1/2 10mg tabs) daily for depression. 11/12/2017 - PHQ-9 in office score 12. Depression managed by Viv Cox. Assessment & Plan (05/22/2020 12:55 PM SPECIAL DELIVERY WORKER): Pt states her symptoms are much improved [...] ~1mo. Assessment & Plan (04/30/2020 1:39 PM SPECIAL DELIVERY WORKER): Restarted Lexapro 15mg. Told patient that I [...] well. Patient recently got a job at [email or web address] and is excited about her first [employer] Patient reports that her mom and her have become very close and she is happy about that. Congratulated patient on all her accomplishments. Patient to follow up if mood starts to deteriorate again. Assessment & Plan (05/18/2019 10:43 AM SPECIAL DELIVERY WORKER): Per review of [facility] records, [...] Psych and receive [facility] services [facility] or [facility]. Mom would like to take patient to [facility] as it is closer to their home. Mom given the phone number for [facility] and encouraged her to get patient in as soon as possible. Told mom that if she is unable to get patient in with [facility], to call the office and we will put in a Behavioral Health Navigator referral to get patient started. Will request records from [facility] so that we can refill the medication that she is currently on in addition to Lexapro. Per mom, they still have some of the medication in a blister pack card left from the facility. Refill sent for Lexapro 10mg to patient's pharmacy. Follow up in 4 weeks or sooner if symptoms worsen. Will call mom when we have records from [facility] and can fill the other medication. Mom [...] negative, rapid strep negative, throat culture negative, [place] negative. Explained to Mom DDX of viral exanthem, [place] like illness, scarlet fever. Explained that I [...] 02/22/20 Assessment & Plan (05/18/2019 10:52 AM SPECIAL DELIVERY WORKER): Patient appears ill in office, laying on [...] will call with appointment details. Mom prefers [facility] for Ortho. Acute infective otitis externa of left ear 02/24/2019 03/18/2020 Acute recurrent adenotonsillitis 09/01/2016 03/18/2020 Immunizations Immunization Administration Dates Next Due Covid-19, Mrna, Lnp-s, Pf, 3 0 Mcg/0.3 Ml Dose (FanBoom) 12/03/2020,11/11/2020 DTAP-IPV 03/25/2010 DTAP/HEPB/IPV Vaccine 09/18/2005, 005,02/03/2005,08/20 [...] Sex Assigned at Female 05/15/2024 8:39 PM SPECIAL DELIVERY WORKER Legal Sex Female 8:18 PM CDT Gender Identity Female 05/15/2024 8:39 PM SPECIAL DELIVERY WORKER Sexual Orientation Not on file Occupation Industry Job Start Date Job End Date Student/ Child Not on file Not on file Not on file Last Filed Vital Signs Vital Sign Reading Time Taken Comments Blood Pressure 117/64 05/15/2024 8:27 PM SPECIAL DELIVERY WORKER Pulse 88 05/15/2024 8:27 PM SPECIAL DELIVERY WORKER Temperature 36.7 C (98.1 F) 05/15/2024 8:27 PM SPECIAL DELIVERY WORKER Respiratory Rate 18 05/15/2024 8:27 PM SPECIAL DELIVERY WORKER Oxygen Saturation 100% 05/15/2024 8:27 PM SPECIAL DELIVERY WORKER Inhaled Oxygen Concentration - - Weight 70.3 kg (155 lb) 05/15/2024 8:27 PM SPECIAL DELIVERY WORKER Height 162.6 cm (5' 4) 05/15/2024 8:27 PM SPECIAL DELIVERY WORKER Body Mass Index 26.61 05/15/2024 8:27 PM SPECIAL DELIVERY WORKER Plan of Treatment Health Maintenance Due Date Last Done Comments Hepatitis C Virus (HCV) Screening 2004 Human Papillomavirus (HPV) Immunization (1 - 3-dose series) 2019 Meningococcal B Immunization (1 of 2 - Standard) 2020 SARS-COV-2 Immunization (3 - season) 2024 12/03/2020, 11/11/2020 Influenza Immunization (Season Ended) 2025 03/18/2020, 04/14/2019 DTaP/Tdap/Td Immunization (7 - Td or Tdap) [...] patient's age to complete this topic Insurance [facility] Care Teams Decorator Store Relationship Specialty Start Date End Date Provider, None HEMALATHA PCP - General 05/15/24
--- NOTE | 2024-12-06 00:17 | LDADM ---
This patient, Naomi Can, was admitted to Labor/Delivery/Recovery 107 on 12/06/24 at 00:01. Plans for labor, pain management and were discussed with patient. Patient/family oriented to hospital policies and general routines including ID bracelet, bed and alarms, visiting hours, pain management, procedures, bathroom and other care routines, personal items, smoking policy, room service/diet and guest tray routines, infant security routines, and visiting hours. Patient/Family are encouraged to report perceived risks to care and to ask questions if they do not understand what they are told or what they should do. See OBIX for further documentation.
[2024-12-06 00:26] LABS: Basophils Percent Auto 0.5 % (0.2-1.2); Eosinophils Absolute Auto 0.1 K/mm3 (0-0.3); Eosinophils Percent Auto 0.6 % (0-4.4); Hematocrit 35.9 % (37.0-47.0); Hemoglobin 12.1 g/dL (12.0-15.0); Immature Granulocyte Percent A 1.1 % (0-0.5); Lymphocytes Absolute Auto 1.74 K/mm3 (0.9-3.2); Lymphocytes Percent Auto 19.6 % (18.3-44.2); Mean Corpuscular HGB Conc 33.7 g/dl (32-36); Mean Corpuscular Hemoglobin 30.6 pg (26-34); Mean Corpuscular Volume 90.7 fl (80-100); Mean Platelet Volume 10.4 fl (7.4-10.4); Monocytes Absolute Auto 0.7 K/mm3 (0.1-0.6); Monocytes Percent Auto 7.3 % (2.6-8.5); Neutrophils Absolute Auto 6.3 K/mm3 (1.3-6.7); Neutrophils Percent Auto 70.9 % (45.5-73.1); Platelet Count Result 268 k/mm3 (150-375); Red Blood Count 3.96 M/mm3 (4.2-5.4); Red Cell Distribution Width 12.8 % (11.5-14.5); White Blood Count 8.9 K/mm3 (4.5-10.0)
[2024-12-06] MEDS: miSOPROStol 25 MCG TABLET 50 MCG VAGINAL (00:30)
[2024-12-06 01:14] LABS: HIV 1/2 Ab P24 Ag Result Negative (Negative)
--- NOTE | 2024-12-06 01:53 | WPDANESEPP ---
Anes - Eval Pre Procedure Procedure: labor pain managment Date/Time: 12/06/24 01:53 Surgeon: Vinay Preop Diagnosis: pain during labor Pre Op Diagnosis: IOL Patient Data Age: 19 Gender: F Height: 1.61 m Weight: 86.36 kg Last Vital Signs Pulse 83 12/06/24 01:45 BP 125/81 12/06/24 01:45 Pulse Ox 99 12/06/24 01:45 O2 Del Method Room Air 12/06/24 00:01 Allergies Allergy/AdvReac Type Severity Reaction Status Date / Time codeine Allergy Unknown RASH Verified 12/06/24 01:34 Home Medications ?Medication ?Instructions ?Recorded ?Confirmed ?Type nqaokcpktp-bjwetekrlcjjc-mlsqidal tablet 11/30/24 History 50 mg-325 mg-40 mg tablet vits no.130-ferrous fum 1 tablet PO DAILY 11/30/24 12/06/24 History 27 mg iron-folic acid 800 mcg tablet ( Vitamin) Laboratory Tests 12/06/24 12/06/24 00:12 00:49 WBC 8.9 K/mm3 (4.5-10.0) RBC 3.96 L M/mm3 (4.2-5.4) Hgb 12.1 g/dL (12.0-15.0) Hct 35.9 L % (37.0-47.0) MCV 90.7 fl (80-100) MCH 30.6 pg (26-34) MCHC 33.7 g/dl (32-36) RDW 12.8 % (11.5-14.5) Plt Count 268 k/mm3 (150-375) MPV 10.4 fl (7.4-10.4) Immature Gran % (Auto) 1.1 H % (0-0.5) Neut % (Auto) 70.9 % (45.5-73.1) Lymph % (Auto) 19.6 % (18.3-44.2) [place] % (Auto) 7.3 % (2.6-8.5) Eos % (Auto) 0.6 % (0-4.4) Baso % (Auto) 0.5 % (0.2-1.2) Lymph # (Auto) 1.74 K/mm3 (0.9-3.2) [place] # (Auto) 0.7 H K/mm3 (0.1-0.6) Eos # (Auto) 0.1 K/mm3 (0-0.3) Baso # (Auto) 0.0 K/mm3 (0.0-0.1) Abs Immat Gran (auto) 0.10 H K/mm3 (0.00-0.031) Absolute Neuts (auto) 6.3 K/mm3 (1.3-6.7) Absolute Nucleated RBC 0.000 K/mm3 (0.0-0.012) Nucleated RBC % 0.0 % (0.0-0.2) HIV 1&2 Ab/P24 Ag 4thGn Negative (Negative) Blood Type O Negative Antibody Screen Negative Patient hx anesthesia problems: none Family hx anesthesia problems: none Results Review: All pre-operative results and documents have been reviewed as part of the pre-operative evaluation. [facility] Past Medical History Medical History Depression Anxiety Migraines Asthma Surgical History Surgical History History of tonsillectomy and adenoidectomy Family History Family History Father Diabetes mellitus Grandparent Diabetes mellitus Sibling Hypertension Social History Social History Smoking status: Former smoker Tobacco type: e-cigarettes/vaping Second hand tobacco smoke exposure: No Substance use: never Do You Feel Safe in your Home?: Yes Lack of Transportation: No Lack of Food: Never True Current Housing: I Have Housing Concerned About Future Housing: No Difficulty Paying Gas/Electric Bills: No Difficulty Paying for Meds: No Currently Unemployed: No Education: High School Diploma/GED Difficulty w/ Childcare or Family Care: No Spiritual care concerns: No Exam Day of Procedure 12/06/24 01:53
[2024-12-06 02:13] LABS: Syphilis IgG/IgM Antibody Non-Reactive (Nonreactive)
[2024-12-06] MEDS: miSOPROStol 25 MCG TABLET 50 MCG BUCCAL (04:30)
--- NOTE | 2024-12-06 07:40 | WPDOBADMIT ---
Obstetrics - Admit Note Admission Note: record reviewed. No pertinent additions to the history and/or any subsequent changes in the physical findings that are not consistent with the expected course of the were found. Additions to the history and/or subsequent changes in the physical findings follow. IOL at 40 weeks, SVE 2/80/-2 AROM meconium fluid, anticipate vaginal delivery
[2024-12-06] MEDS: LACTATED RINGERS 1,000 ML 125 ML IV CONT ×2 (09:06→13:34)
[2024-12-06] MEDS: OXYTOCIN 30 UNITS/NS 500 ML 30 UNITS/500 ML BAG IV CONT (10:40)
--- NOTE | 2024-12-06 20:05 | PM.OBPRVD ---
OB - Vaginal Delivery Note Procedure Delivery date: 12/06/24 Induction method: AROM, Per Misoprostol Protocol and Per Pitocin Protocol Delivery monitor: External FHT and External Uterine Route of delivery: Episiotomy description: None Laceration Description: None Specimen: No Quantitative Blood Loss (ml): 100 Anesthesia type: Epidural Disposition: Floor Complications: No immediate complications Baby Date of : 12/06/24 Time of : 19:50 Gestational Age by Date: 40 gender: Female Weight (pounds): 7 Weight (ounces): 14 presentation: vertex position: Left Occiput Anterior Placenta delivery description: Spontaneous Cord Vessel Description: 3 Vessels score one minute: 9 score five minutes: 9
[2024-12-06] MEDS: OXYTOCIN 30 UNITS/NS 500 ML 30 UNITS/500 ML BAG 125 UNITS IV CONT (20:23)
[2024-12-06] MEDS: diphenhydrAMINE HCl CAP 25 MG CAPSULE 50 MG PO (21:00)
[2024-12-06] MEDS: IBUPROFEN 600 MG TABLET PO (21:10)
[2024-12-07] MEDS: ACETAMINOPHEN 325 MG TABLET 650 MG PO (01:50)
[2024-12-07 03:21] VITALS: BP 97/47; PULSE 62; RESP 16; TEMP 36.4; O2SAT 98
[2024-12-07 03:31] LABS: Hematocrit 31.8 % (37.0-47.0); Hemoglobin 10.4 g/dL (12.0-15.0)
--- NOTE | 2024-12-07 05:43 | P.PNOB_ITS ---
OB - PN: Subj Subjective Date/time seen: 12/07/24 05:43 Interval history: pp day 1 doing well OB - PN: Obj Data Labs 12/07/24 03:13 Labs: Laboratory Results - last 24 hr 12/07/24 03:13 Hgb 10.4 L Hct 31.8 L Blood Type O Negative Antibody Screen TNP Screen Negative Baby's Blood Type O pos Baby's EMERITA Negative Doses of RhIg Required 1 OB - PN A/P Plan day: 1 Plan: routine care Time Spent With Patient Time: Total time spent is greater than 50% in coordination of care (as documented) at patient's floor/unit and/or counseling patient: Review of Systems 2 Review of Systems: All systems reviewed & are unremarkable except as noted in HPI and below Exam 2 Const: General: cooperative, healthy appearing and comfortable Chest: Chest palpation & inspection: normal inspection of the chest Resp: Effort & Inspection: normal respiratory effort Cardio: Rate: regular rate Back/Spine/Pelvis: Back: no CVA tenderness Skin: General skin exam: normal color
[2024-12-07] MEDS: IBUPROFEN 600 MG TABLET PO ×2 (07:25→21:31)
[2024-12-07 07:55] VITALS: BP 107/62; PULSE 67; RESP 18; TEMP 36.5; O2SAT 99
[2024-12-07] MEDS: MULTIVIT/MIN/PREN/FOL AC/IRON TABLET 1 TAB PO (10:21)
--- NOTE | 2024-12-07 10:59 | PC.NURSE ---
Introductions were made, then consulted with patient to assess needs related to . Mother led the conversation with her?plans to feed?her infant and the?experience so far. Mother was given a nipple shield overnight and proper education was provided by night RN. Mother is able to place the shield and put on the breast independently without pain. Demonstrated how to hand express drops of colostrum to entice to latch to the breast without the shield in place. This RN was able to get infant to latch without the shield for 5-6 sucks. Discussed with mother that we can attempt to put infant on the breast without the shield at each feeding and she can call this RN for assistance doing so. Education given to the mother of how to visualize the suckling (with good rocking jaw motion), swallows (dropping of the lower jaw) and how to listen for drinking at the breast (the ka sound). was [able] to maintain latch without pain to mother protecting the nipple with optimal positioning and latching with the nipple shield in place. Discussed the need to begin pumping due to the usage of the nipple shield to protect her milk supply. actively nursing in the football position upon exiting the room. Mother will call this RN once feeding is complete to begin breast pump education.
[2024-12-07 12:41] VITALS: BP 111/77; PULSE 55; RESP 16; TEMP 36.6; O2SAT 99
--- NOTE | 2024-12-07 14:01 | WPDANLDPN2 ---
Anes-Prog Note L&D Date/Time: 12/07/24 14:01 Comfortable throughout: labor and delivery Neuraxial method: epidural Epidural/Spinal procedure site: clean & non-tender Neuro status: Neuro function grossly intact. Cardiovascular status: normal Respiratory status: normal Airway patency: baseline Mental status: baseline Post-Op hydration status: normal Vital Signs: Last Vital Signs Temp 97.8 F 12/07/24 12:41 Pulse 55 L 12/07/24 12:41 Resp 16 12/07/24 12:41 BP 111/77 12/07/24 12:41 Pulse Ox 99 12/07/24 12:41 O2 Del Method Room Air 12/07/24 07:25 Pain score (VAS): 0/10 I/O: Intake & Output 12/06/24 12/07/24 12/07/24 23:59 07:59 15:59 Output Total 100 Balance -100 Post-procedural complaints: none Patient feedback: Patient satisfied with anesthetic care.
[2024-12-07] MEDS: RHO(D) IMMUNE GLOBULIN 300 MCG/2 ML SYRINGE IM (16:21)
[2024-12-07 20:02] VITALS: BP 109/65; PULSE 91; RESP 18; TEMP 37.2; O2SAT 99
[2024-12-07 22:39] VITALS: PULSE 91; RESP 18; O2SAT 99
--- NOTE | 2024-12-08 07:10 | PC.NURSE ---
Mother requested assistance this morning. She says that she has been trying to feed since 0520, when baby latched with the nipple shield and fed for 20 minutes. Mom then tried to pump because baby was still rooting. She was only able to pump on one breast because the other nipple was too painful. She did not get any volume of breast milk to feed baby. Dad is currently holding baby and she is calm with her pacifier. Mom states that she feels that baby is 'starving' and she can 'feel her stomach growling'. Inquired what plan of action parents would like to take. They prefer to initiate supplementation with formula. Educated dad to feed 20-25ml and to burp frequently. Mom is upset and crying so she is encouraged to rest and that we will discuss discharge teaching later and reassess her nipples and flanges to see if we need to resize since she is having so much pain. Mother is supported to express her discouragement that she does not have a greater volume of milk at this time, but that she is succeeding in doing all that she needs to to support her milk supply. Anticipatory guidance given on milk production. RN updated.
--- NOTE | 2024-12-08 07:24 | P.PNOB_ITS ---
OB - PN: Subj Subjective Date/time seen: 12/08/24 07:24 Interval history: pp day 2 having some trouble with has been talking to OB - PN: Obj Data Labs 12/07/24 03:13 Labs: Laboratory Results - last 24 hr 12/07/24 03:13 Blood Type O Negative Antibody Screen TNP Screen Negative Baby's Blood Type O pos Baby's EMERITA Negative Doses of RhIg Required 1 OB - PN A/P Plan day: 2 Plan: routine care and discharge home Time Spent With Patient Time: Total time spent is greater than 50% in coordination of care (as documented) at patient's floor/unit and/or counseling patient: Review of Systems 2 Review of Systems: All systems reviewed & are unremarkable except as noted in HPI and below Exam 2 Const: General: cooperative and healthy appearing Chest: Chest palpation & inspection: normal inspection of the chest Resp: Effort & Inspection: normal respiratory effort Cardio: Rate: regular rate Skin: General skin exam: normal color
--- NOTE | 2024-12-08 07:28 | PM.OBDSVD ---
DS: Admitting Diagnosis Discharge Date 12/08/24 Admitting Diagnosis IOL DS: Discharge Diagnosis Discharge Diagnosis (1) Vaginal delivery: Code(s): O80 - Encounter for full-term uncomplicated delivery Status: Acute OB - DS: Summary OB Procedures : None OB Procedures Intrapartum: Spontaneous Vag Delivery OB Procedures: : None Peripartum Data Laceration Description: None Episiotomy description: None Time Spent with Patient Time attestation: Total time spent providing and/or coordinating discharge services: DS: Data Data Completed and Pending Labs on day of discharge: Labs from last 24 hours 12/07/24 03:13 Blood Type O Negative Antibody Screen TNP Screen Negative Baby's Blood Type O pos Baby's EMERITA Negative Doses of RhIg Required 1 Discharge Plan Discharge Attending physician on discharge: Luis Alfredo Green Consulting providers: Annika Chavira Discharging Clinician: Annika Chavira Patient Disposition: Home Activity: pelvic rest Diet: regular Patient Instructions: Antibiotic Form Patient Language: Macedonian Stand Alone Forms: General Discharge Information Follow-up/Referrals: Annika Chavira CNM [Certified Nurse Fuel Distribution System Operator] - 2 Weeks (2 weeks pp) Discharge Medications: New ibuprofen 600 mg Tablet 600 mg PO Q6H PRN (Reason: Cramping) Qty: 30 0RF Discontinued twunhchrqs-zofhtkfpydonq-bvyp 50-325-40 mg tablet No Action Vitamin 27 mg iron- 800 mcg tablet 1 tablet PO DAILY Date of admission: 12/06/24 00:01 Primary Care Provider: Luis Alfredo Green Admitting Provider: Jose Mclean Attending physician on admission: Jose Mclean Condition: Stable
[2024-12-08 07:45] VITALS: BP 103/65; PULSE 78; RESP 18; TEMP 37.1; O2SAT 98
[2024-12-08] MEDS: MULTIVIT/MIN/PREN/FOL AC/IRON TABLET 1 TAB PO (07:50)
[2024-12-08] MEDS: IBUPROFEN 600 MG TABLET PO (07:50)
--- NOTE | 2024-12-08 09:34 | PC.NURSE ---
Patient viewed the discharge video Mother & Baby Care, The First Two Weeks. Patient was given the opportunity and encouraged to ask questions. Patient verbalized understanding of information shared and has been given the mother/baby guide for home reference.
--- NOTE | 2024-12-08 10:30 | PC.NURSE ---
Met with parents to review the feeding plan and to answer any questions they have prior to discharge. Mom is currently pumping and says that her nipples are much less painful this time. She was able to pump 10ml this session and is encouraged to feed the breast milk first and then top off with formula if mom/baby desires. Dad present and asks some questions regarding caffeine and alcohol and . Patient education provided on positioning at breast and nipple shield use. She would like to be able to latch baby without the shield. Encouraged her to call out for her next feeding so that we can work on latch and cross cradle. Mom agrees to call out and parents state that they have no further questions at this time. They can refer to the Mom/baby Guide for helpful tips on , pumping, and milk storage times. Primary RN updated.
--- NOTE | 2024-12-08 12:30 | PC.NURSE ---
Assisted patient to latch baby in cross cradle on the left breast. She easily obtained an optimal latch independently. She declines pain. Mom states that this is the easiest baby has ever latched to the left breast. We did not use the nipple shield and mom fed on the right breast independently without the shield as well. Reviewed tummy to tummy, alignment, and observing nose/chin close to breast. Mom is encouraged to contact the office for any additional assistance needed after discharge. Feeding plan reviewed. RN updated.
== END 2024-12-08 14:03 | disposition home or self-care (01) | DRG 807 ==
LOC: ANHLDR 00:31 → ANHOB2 22:19
PROVIDERS: Advanced Practice Midwife; Admitting Provider Obstetrics & Gynecology; PCP Obstetrics & Gynecology; Visit Provider Obstetrics & Gynecology
DX: O80 Encounter for full-term uncomplicated delivery (principal); Z37.0 Single live birth; Z3A.40 40 weeks gestation of pregnancy
CPT/HCPCS: 36415; 85014; 85018; 85025; 85461; 86593; 86703; 86850; 86900; 86901; 90384; A9270; G0432; J2590; J2790; J2795; J7120